=== PATIENT | male | born 1955 | race Caucasian/White ===

== ENCOUNTER 2017-05-23 02:49 | Inpatient (IN) | payer MEDICARE ==
[~2017-05-23] VITALS: Ht 165.1 cm; Wt 82.4 kg
[2017-05-23] VITALS (23 sets, daily range): BP systolic 98–158; BP diastolic 41–66; Ht 165.1 cm; Wt 82.4 kg
--- NOTE | ~2017-05-23 | HEMODYNAMI ---
PATIENT:HAYDEE ESCOBAR MEDICAL RECORD: [id number] : 53 LOCATION:[facility] D.2301 ADMISSION DATE: 05/23/17 Generatedon:06/17/201712:33 Patient name: HAYDEE ESCOBAR Patient #: [id number] SSN: : 1 11/02/1954 Date of study: 06/17/2017 Page: Of Hemodynamic Procedure Report Patient Data Patient Demographics Procedure consent was obtained First Name: HAYDEE Gender: Male Last Name: SHAWN : 1955 Patient #: [id number] Age: 61 year(s) Race: Unknown Additional ID: [id number] Contact details [address]: [address] [place] [address] State: [place] City: [place] Zip code: [address] Admission Admission Data Admission Date: 05/23/2017 Admission Time: 3:42 Room #: D.2301 Procedure Procedure Types Cath Procedure Peripheral Cath Diagnostic Procedure Cath Peripheral Venography IVC/SVC Inferior Venacava Filter Procedure Description Procedure Date Procedure Date: 06/17/2017 Procedure Start Time: 12:17 Procedure Staff Name Function Francisco Farias MD Performing Physician Low Garber RT Scrub Hilary Perdue RN Nurse Mariana Nicolas RT Butcher Apprentice Mariana Nicolas RT Monitor Procedure Data Cath Procedure Fluoroscopy Diagnostic fluoroscopy Total fluoroscopy Time: 1.3 time: 1.3 min min Diagnostic fluoroscopy Total fluoroscopy dose: 59 dose: 59 mGy mGy Contrast Material Contrast Material Type Amount (ml) Isovue 300 20 Procedure Medications Medication Administration Route Dosage Fentanyl I.V. 50 mcg Versed I.V. 2 mg Hemodynamics Rest Heart Rate: 92 (bpm) Snapshots Pre Cath Intra NCS Post Cath Vital Signs Time Heart Resp SPO2 NIBP Rhythm Pain Sedation Rate (ipm) (%) (mmHg) Status Level (bpm) 12:12:13 92 24 100 128/69(95) NSR 0 (11) 10(A) , No pain 12:16:31 92 19 100 128/69(83) NSR 0 (11) 10(A) , No pain 12:20:43 90 24 100 122/64(91) NSR 0 (11) 9(A) , No pain 12:24:52 84 22 100 107/60(89) NSR 0 (11) 9(A) , No pain 12:29:05 81 27 100 104/58(78) NSR 0 (11) 9(A) , No pain 12:33:04 No Cuff NSR 0 (11) 9(A) , No pain Medications Time Medication Route Dose Verified Delivered Reason Notes Effectivene ss by by 12:15:17 Versed I.V. 2 mg Hilary Hilary for Iron Iron sedation RN RN 12:15:34 Fentanyl I.V. 50 Hilary Hilary for mcg Iron Iron sedation RN site reliability engineer Log Time Note 11:44:56 Use device set IR Diagnostic 11:44:59 Sterile Angiographic Pack opened to sterile field. 11:45:00 Bag Decanter opened to sterile field. 11:45:01 Acist Manifold opened to sterile field. 11:45:02 Acist Hand Control opened to sterile field. 11:45:04 Acist Syringe opened to sterile field. 11:46:16 Cook BENTSON 145cm guide wire opened to sterile field. 11:46:18 Micropuncture VSI 4FR kit opened to sterile field. 12:01:48 Time tracking: Regular hours 12:03:17 Signed procedure consent form obtained from guardian. 12:03:26 H&P Date Dictated: 06/17/2017 Within 30 days and on chart.. 12:03:38 Family in waiting room. 12:03:43 Patient NPO since Midnight. 12:04:03 Is the patient allergic to Iodine/contrast media? No. 12:05:28 patient on vent, unable to answer pre sedation questions 12:10:50 TUBING, CONTRAST INJCTN HI PRES opened to sterile field. 12:11:00 ECG and BP/O2 sat monitors applied to patient. 12:11:01 Vital chart was started 12:11:02 Baseline sample Acquired. 12:11:03 Full Disclosure recording started 12:11:04 - 12:14:40 Physician arrived 12:15:01 Final Timeout: patient, procedure, and site verified with staff and physician. All members of the team are in agreement. 12:15:17 Versed 2 mg I.V. was administered by Hilary Perdue RN; for sedation; 12:15:34 Fentanyl 50 mcg I.V. was administered by Hilary Perdue RN; for sedation; 12:17:19 Physical assessment completed. ASA score P 3 - A patient with severe systemic disease as per Francisco Farias MD. 12:17:27 Sedation plan: IV Moderate Sedation Versed, Fentanyl 12:17:35 Procedure started. 12:17:50 Local anesthetic to right femoral vein with Lidocaine 1% by Francisco Farias MD.INITIAL ACCESS ONLY 12:17:52 Venous access obtained using ultrasound guidance. 12:20:14 Bard ANDREW Vena Cava Filter opened to sterile field. 12:21:10 Venogram performed 12:24:39 Andrew Femoral IVC filter was placed below renal veins. 12:26:01 Procedure ended.(Physican Out) 12:26:13 Fluoroscopy time 01.30 minutes. 12:26:19 Fluoroscopy dose: 59 mGy 12:26:19 Flurop Dose total: 59 12:26:25 Contrast amount:Isovue 300 20ml. 12:33:49 Vital chart was stopped Device Usage Item Name Manufacture Quantity Catalog Hospital Part Current Minima l Lot# / Number Charge Number Stock Stock Serial# Code Sterile Cardinal 1 [id number] 5 Angiographic Health Pack Bag Decanter Microtek 1 [id number] 85701 666749 5 Medical Inc. Acist Acist 1 43841 293285 238447 538021 5 Manifold Medical Systems Inc Acist Hand Acist 1 42741 543413 473595 445473 5 Control Medical Systems Inc Acist Syringe Acist 1 25779 752958 741127 395202 20 Medical Systems Inc Cook BENTSON Cook Medical 1 [id number] [id number] 5 [id number] 145cm guide wire Micropuncture VSI VASCULAR 1 [id number] 630405 273831 5 VSI 4FR kit SOLUTIONS TUBING, Merit 1 [id number] 276046 156216 480181 5 CONTRAST Medical INJCTN HI PRES Bard ANDREW Bard 1 [id number] 474239 870945 702518 5 [id number] Vena Cava Filter Signature Audit [place] Stage Time Signature Unsigned Intra-Procedure 06/17/2017 Mariana Nicolas 12:33:47 PM RT(R) Signatures Monitor : Mariana Nicolas RT Signature : Date : Time : [id number] [place] [address]
--- NOTE | 2017-05-23 03:35 | NUR ---
PT ARRIVED TO ICU VIA EMS FROM [place]. BP 158/59. TACHYPNEA WITH DIFFICULTY TAKING A DEEP BREATH; C/O PAIN WITH DEEP BREATH AND COUGHING. FEBRILE 99.9. 99% ON 8L OXYMIZER. PT COMPLAIN OF STIFFNESS IN RIGHT HAND AND ARM. SCAB SORE NOTED TO RIGHT UPPER ARM. PT STATES IT HAPPENED DURING FALL. URINAL AT BEDSIDE. AAO. PERRLA; 2MM BRISK. PT AND FAMILY STATES STARTED FALLING 3 WEEKS AGO, HAVING WEAKNESS, DIFFICULTY BREATHING, AND COUGHING. WENT TO THE PCP RECIEVED ABX, MRI, AND CHEST XRAY. STATED WAS ON ABX FOR 2 WEEKS. WEAKNESS CONTINUED UNTIL COUGHED AND PASSED OUT ON THE WAY TO THE BATHROOM. WENT TO ER IN [place]. PIV TO RIGHT HAND. PT ABLE TO MAKE CHANGES IN POSITION INDEPENDENTLY. ABLE TO COMMUNICATE VERBALLY; UNDERSTOOD; GETS SOB WITH LONG SENTENCES. ABLE TO STAND AT BEDSIDE TO USE URINAL; STEADY. PT STATES HX OF BEING A PREVIOUS SMOKER, CHF, AND HTN. PITTING EDEMA NOTED TO LOWER EXTREMITIES; +2 PITTING EDEMA BILATERALLY IN FEET. ALLERGY BAND, YELLOW BAND, AND ID BAND IN PLACE. LOCOMOTIVE ENGINEER ELECTRIC <3 SECS.
--- NOTE | 2017-05-23 05:26 | NUR ---
PT RESTING; EYES CLOSED. HYPOTENSION NOTED; MAP >65. WILL MONITOR CLOSELY.
[2017-05-23 05:33] LABS: BASOPHILS 0.2 % (0-2); EOSINOPHILS 0.4 % (0-7); HEMATOCRIT 33.5 % (42.0-54.0); HEMOGLOBIN 10.7 g/dL (13.5-17.5); IMMATURE GRANULOCYTES 1.2 % (0-5); LYMPHOCYTES 11.7 % (15-50); MCH 28.7 pg (26.0-34.0); MCHC 31.9 g/dL (31.0-37.0); MCV 89.8 fL (80.0-100.0); MEAN PLATELET VOLUME 10.5 fL (7.4-10.4); MONOCYTES 11.2 % (2-11); NEUTROPHILS 75.3 % (40-80); PLATELET COUNT 302 10x3/uL (130-400); RBC 3.73 10x6/uL (4.20-6.10); RDW 15.5 % (11.5-14.5); WBC 17.7 10x3/uL (4.8-10.8)
--- NOTE | 2017-05-23 05:54 | NUR ---
PT ATTEMPTED TO URINATE AT BEDSIDE IN URINAL. HAD DIFFICULTY VOIDING.
--- NOTE | 2017-05-23 06:09 | NUR ---
FAMILY AT BEDSIDE.
--- NOTE | 2017-05-23 06:23 | NUR ---
ALONDRA HERNANDEZ FOR CONSULT ORDERED BY GILMER.
--- NOTE | 2017-05-23 06:38 | NUR ---
SPOKE WITH DR. HERNANDEZ ORDERS RECEIVED. SEE ORDERS FOR DETAILS.
--- NOTE | 2017-05-23 07:00 | NUR ---
PT AWAKE AND ALERT, ORIENTED X4. ABLE TO OBEY COMMANDS AND VERBALIZE NEEDS. NORMAL SINUS ON MONITOR, S1S2 NOTED. PT HAVING DISCOMFORT WITH DEEP BREATHING, ENCOURAGED TO TURN COUGH AND DEEP BREATHE TOLERATED. PT ABLE TO TURN SELF IN BED WITHOUT ASSISTANCE. SHIFT ASSESSMENT DOCUMENTED PER FLOWSHEET. VITAL SIGNS STABLE.
[2017-05-23 07:14] LABS: ANION GAP 12.5 mmol/L (8-16); CALCIUM 8.3 mg/dL (8.5-10.1); CARBON DIOXIDE 28.8 mmol/L (21.0-32.0); CREATININE - SERUM 1.3 mg/dL (0.6-1.3); POTASSIUM - SERUM 4.3 mmol/L (3.5-5.1)
--- NOTE | 2017-05-23 09:00 | NUR ---
PT SITTING UP EATING BREAKFAST INDEPENDENTLY. O2 SAT STABLE ON 8L OXYMIZER, BREATHING SHALLOW BUT UNLABORED.
--- NOTE | 2017-05-23 11:00 | NUR ---
PT SITTING UP IN BED AT THIS TIME WITH WEAK COUGH NOTED. BREATHING SHALLOW BUT UNLABORED. WILL CONTINUE TO MONITOR.
--- NOTE | 2017-05-23 13:00 | NUR ---
NO ACUTE CHANGES IN PT STATUS AT THIS TIME. FAMILY AT BEDSIDE AND UPDATE GIVEN. WILL CONTINUE TO MONITOR
--- NOTE | 2017-05-23 15:00 | NUR ---
FAMILY CALLED AND UPDATE GIVEN. PT STATUS REMAINS UNCHANGED FROM PREVIOUS ASSESSMENT. CONTINUING TO WEAN O2 TOLERATED.
--- NOTE | 2017-05-23 17:00 | NUR ---
PT SITTING UP EATING DINNER INDEPENDENTLY. PLACED ON 3L NC AND O2 SAT STABLE AT THIS TIME. PT DENIES SHORTNESS OF BREATH. WILL CONTINUE TO MONITOR CLOSELY FOR SIGNS OF DISTRESS OR CHANGE IN STATUS. CALL LIGHT WITHIN REACH AND VITAL SIGNS STABLE
[2017-05-23] MEDS ORDERED: VIBRAMYCIN 100100 MG (18:17)
[2017-05-23] MEDS ORDERED: ISOSORBIDE MONO30 M1 PO (18:22)
[2017-05-23] MEDS ORDERED: ZANAFLEX4 MG PO (18:23)
[2017-05-23] MEDS ORDERED: METOPROLOL TART25 MG PO (18:24)
[2017-05-23] MEDS ORDERED: FLOMAX0.4 MG PO (18:25)
[2017-05-23] MEDS ORDERED: RANEXA1000 MG PO (18:26)
[2017-05-23] MEDS ORDERED: NEURONTIN800 MG PO (18:27)
[2017-05-23] MEDS ORDERED: AMBIEN10 MG PO (18:27)
[2017-05-23] MEDS ORDERED: NITRO-DUR0.6 MG TRANSDERM (18:29)
[2017-05-23] MEDS ORDERED: PLAVIX75 MG PO (18:29)
--- NOTE | 2017-05-23 19:15 | NUR ---
REC'D TO CARE, LINUX SYSTEM ENGINEER PER FLOWSHEET. PT ALERT AND ORIENTED. VSS. PT DENIES SOB OR CHEST PAIN..ALARMS ON. URINAL AT BS. C/L IN REACH.
--- NOTE | 2017-05-23 21:27 | NUR ---
FAMILY AT BS, UPDATE GIVEN AND QUESTIONS ANSWERED. ADMIN PO MED PER MD ORDERS. VSS . C/L IN REACH.
--- NOTE | 2017-05-23 23:12 | NUR ---
REASSESSMENT PER FLOWSHEET, NO ACUTE CHANGES. PT WATCHING TV, DENIES PAIN OR NEEDS. C/L IN USE.
[2017-05-24] VITALS (26 sets, daily range): BP systolic 101–140; BP diastolic 44–89
--- NOTE | 2017-05-24 01:00 | NUR ---
RESTING WITH EYES CLOSED, VSS. ALARMS ON AND C/L IN REACH.
--- NOTE | 2017-05-24 03:31 | NUR ---
REASSESSMENT PER FLOWSHEET, NO ACUTE CHANGES. VSS. PT DENIES NEEDS. C/L IN USE.
[2017-05-24 04:32] LABS: BASOPHILS 0.1 % (0-2); EOSINOPHILS 0 % (0-7); HEMOGLOBIN 11.4 g/dL (13.5-17.5); IMMATURE GRANULOCYTES 1.1 % (0-5); LYMPHOCYTES 8.7 % (15-50); MCH 28.4 pg (26.0-34.0); MCHC 31.7 g/dL (31.0-37.0); MCV 89.8 fL (80.0-100.0); MEAN PLATELET VOLUME 10.9 fL (7.4-10.4); MONOCYTES 4.8 % (2-11); NEUTROPHILS 85.3 % (40-80); PLATELET COUNT 309 10x3/uL (130-400); RBC 4.01 10x6/uL (4.20-6.10); RDW 15.2 % (11.5-14.5); WBC 13.3 10x3/uL (4.8-10.8)
[2017-05-24 04:50] LABS: ALBUMIN 2.2 g/dL (3.4-5.0); ANION GAP 14.2 mmol/L (8-16); BILIRUBIN - TOTAL 0.35 mg/dL (0.2-1.3); CALCIUM 8.8 mg/dL (8.5-10.1); CARBON DIOXIDE 26.6 mmol/L (21.0-32.0); CREATININE - SERUM 1.3 mg/dL (0.6-1.3); MAGNESIUM - SERUM 1.9 mg/dL (1.8-2.4); POTASSIUM - SERUM 3.8 mmol/L (3.5-5.1); PROTEIN - SERUM 6.9 g/dL (6.4-8.2)
--- NOTE | 2017-05-24 06:32 | NUR ---
AT , UPDATE GIVEN AND QUESTIONS ANSWERED.
--- NOTE | 2017-05-24 07:00 | NUR ---
REC'D REPORT AND RESUMED CARE, AWAKE AND CONFUSED, O2 VIA NC AT 3L, SAT 98%, OTHER VSS, ASSESSMENT COMPLETE PER FLOWSHEET, C/O PAIN IN BACK, 05/08, NO OTHER NEEDS AT THIS TIME
--- NOTE | 2017-05-24 08:00 | NUR ---
SISTER JAYLA CALLED FOR UPDATE, PASSWORD OBTAINED, STATUS UPDATED, NO OTHER NEEDS AT THIS TIME
--- NOTE | 2017-05-24 09:30 | NUR ---
AM MEDS GIVEN PER MAR ORDER
--- NOTE | 2017-05-24 11:00 | NUR ---
RESTING NO SIGNS OF DISTRESS, VSS, DENIES PAIN, NO ACUTE CHANGE FROM PREVIOUS ASSESSMENT, DR ROBERTSON AT BEDSIDE FOR EVAL, VOICES NO NEEDS AT THIS TIME
--- NOTE | 2017-05-24 12:00 | NUR ---
DR HERNANDEZ HERE FOR EVAL, NO NEW ORDERS AT THIS TIME, NO VISITORS AT THIS TIME
--- NOTE | 2017-05-24 12:15 | NUR ---
DR ROBERTSON HERE FOR EVAL, NO NEW ORDERS AT THIS TIME
--- NOTE | 2017-05-24 12:45 | NUR ---
AND SON AT BEDSIDE, STATUS UPDATED, VOICES NO NEEDS AT THIS TIME
--- NOTE | 2017-05-24 16:45 | NUR ---
DINNER TRAY TO BEDSIDE, INDEPENDENT WITH SET UP AND EATING
--- NOTE | 2017-05-24 18:00 | NUR ---
FAMILY AT BEDSIDE, STATUS UPDATED, VOICES NO NEEDS AT THIS TIME
--- NOTE | 2017-05-24 18:22 | NUR ---
NAUSEATED FROM DINNER, ZOFRAN 4 MG IVP GIVEN PER NEW ORDER
--- NOTE | 2017-05-24 18:38 | NUR ---
OOB TO BEDSIDE COMMODE WITHOUT ASSIST, TRANSFERRED WITHOUT DIFFICULTY
--- NOTE | 2017-05-24 19:30 | NUR ---
REPORT RECIEVED, SHIFT ASSESSMENT COMPLETE, PT IS ALERT AND ORIENTED, ON 3L NC WITH 98% O2 SAT. CRACKLES HEARD IN B/L UPPER LOBES, DIMINISHED IN B/L LOWER LBOES, S1S2, CM-NSR, PATENT RIGHT HAND PIV WITH NS INFUSING VIA PUMP, ABDOMEN IS SOFT AND ROUND WITH ACTIVE BS, URINAL AT BEDSIDE, ALL PPP, VSS, CALL LIGHT IN REACH
--- NOTE | 2017-05-24 21:15 | NUR ---
FAMILY AT BEDSIDE, UPDATE GIVEN
--- NOTE | 2017-05-24 23:00 | NUR ---
PT SAT DOWN IN BED AND FELL BACK INTO BED, STATES "I GOT REAL DIZZY AND FELL BACKWARDS". FAMILY CALLED EXPRESSING CONCERN DUE TO PT TELLING THEM HE FELL IN FLOOR AND HIT HIS HEAD, EXPLAINED TO FAMILY THAT PT DID NOT FALL IN FLOOR NOR DID HE HIT HIS HEAD, SON THEN EXPLAINED THAT PT HAS BEEN PASSING OUT AND FALLING OVER THE PAST MONTH, I LET THE SON KNOW THAT I WOULD PASS IT ON TO THE PHYSICIAN IN THE MORNING.
[2017-05-25] VITALS (11 sets, daily range): BP systolic 78–135; BP diastolic 40–72
--- NOTE | 2017-05-25 01:15 | NUR ---
PT RESTING AT THIS TIME, NO NEEDS NOTED, VSS, CALL LIGHT IN REACH
--- NOTE | 2017-05-25 03:00 | NUR ---
PT STILL CONFUSED TO TIME AND SITUATION, REORIENTS EASILY,
[2017-05-25 04:02] LABS: HEMATOCRIT 32.7 % (42.0-54.0); HEMOGLOBIN 10.4 g/dL (13.5-17.5); MCH 28.7 pg (26.0-34.0); MCHC 31.8 g/dL (31.0-37.0); MCV 90.3 fL (80.0-100.0); MEAN PLATELET VOLUME 10.8 fL (7.4-10.4); PLATELET COUNT 316 10x3/uL (130-400); RBC 3.62 10x6/uL (4.20-6.10); RDW 15.6 % (11.5-14.5); WBC 30.1 10x3/uL (4.8-10.8)
[2017-05-25 04:16] LABS: ANION GAP 12.6 mmol/L (8-16); BILIRUBIN - TOTAL 0.38 mg/dL (0.2-1.3); CALCIUM 8.6 mg/dL (8.5-10.1); CARBON DIOXIDE 28.6 mmol/L (21.0-32.0); CREATININE - SERUM 1.3 mg/dL (0.6-1.3); MAGNESIUM - SERUM 1.8 mg/dL (1.8-2.4); POTASSIUM - SERUM 4.2 mmol/L (3.5-5.1)
[2017-05-25 04:35] LABS: LYMPHOCYTES 3 % (15-50); MONOCYTES 3 % (2-11); NEUTROPHILS 94 % (40-80); PLATELET ESTIMATE NORMAL
--- NOTE | 2017-05-25 05:15 | NUR ---
PT RESTING COMFORTABLY AT THIS TIME, WILL CON'T TO MONITOR
--- NOTE | 2017-05-25 06:20 | NUR ---
FAMILY AT BEDSIDE, UPDATE GIVEN
--- NOTE | 2017-05-25 07:00 | NUR ---
REC'D REPORT AMD RESUMED CARE, AWAKE, ALERT, AND CONFUSED RE: SITUATION, DENIES PAIN, WEAK NON PRODUCTIVE COUGH NOTED, C/O OF PAIN WHEN TAKING A DEEP BREATH, ASSESSMENT COMPLETE PER FLOWSHEET, VSS, CALL LIGHT IN REACH, DISCUSSED USING CALL LIGHT WHEN NEEDING HELP GETTING UP, VERBALIZED UNDERSTANDING, VOICES NOOTHER NEEDS AT THIS TIME
--- NOTE | 2017-05-25 07:45 | NUR ---
BREAKFAST TRAY TO BEDSIDE, INDEPENDENT WITH SET UP AND EATING
--- NOTE | 2017-05-25 08:45 | NUR ---
AM MEDS GIVEN WITHOUT DIFFICULTY, INDEPENDENT WITH BED BATH, LINEN CHANGED BY NURSE, TOLERATED WITHOUT DYSPNEA
--- NOTE | 2017-05-25 09:54 | NUR ---
CALL LIGHT ON, UP AT BEDSIDE WITH STAND BY ASSIST TO USE URINAL, 350 CC URINE TO CONTAINER, BTB WITH ASSIST, CALL LIGHT IN REACH, NO OTHER NEEDS AT THIS TIME
--- NOTE | 2017-05-25 10:23 | NUR ---
Nutrition follow-up: Diet: low sodium PO intake 50-75% of meals Labs reviewed Wt: 148# RDN following.
--- NOTE | 2017-05-25 11:29 | NUR ---
* Is the patient Alert and Oriented? Yes 0 * How many steps to enter\exit or inside your home? 0 0 * PCP Dr. Olivo in [place] 0 * Pharm[facility] in [place] 0 * Preadmission Environment Home with Family 0 * ADLs Independent 0 * Equipment Nebulizer 0 * List name and contact numbers for known caregivers / representatives who currently or will assist patient after discharge: Spouse - Bindu [phone] or [phone] 0 * Additional services required to return to the preadmission environment? No 0 * Can the patient safely return to the preadmission environment? Yes 0 * Has this patient been hospitalized within the prior 30 days at any hospital? No Patient Name: HAYDEE ESCOBAR Admission Status: Elective Accout number: [id number] Admission Date: 05-23-2017 : 1955 Admission Diagnosis:SHORTNESS OF BREATH Attending: LONNIE Current LOS: 2 Planned Disposition: Home Primary Insurance: MEDICARE A & B Discharge Planning Comments: CM met with patient to assess dc plans/needs. Patient states he lives at home with his , Bindu. He reports he is independent with all ADL's & IADL's. He has a home nebulizer but no other DME. He has not had home health services in the past and does not think he will need them at discharge. CM will follow & assist as needed. Job Specification Writer: Letha Burton
--- NOTE | 2017-05-25 14:45 | NUR ---
TRANSFERED TO 2116 VIA WHEELCHAIR, AWAKE AND ALERT, DENIES PAIN, FAMILY AT BEDSIDE, STATUS UPDATED, PRIMARY NURSE JACOB VALADEZ RN CALLED TO BEDSIDE
--- NOTE | 2017-05-25 14:55 | NUR ---
TRANSFER FROM ICU BY W/C. OREINTED TO ROOM. CALL LIGHT IN REACH. WILL CONT. PLAN OF CARE.
--- NOTE | 2017-05-25 19:43 | NUR ---
RESUMED CARE OF PT, LYING IN BED RESPIRATIONS EVEN AND UNLABORED ON 3LPM VIA NC. FAMILY AT BEDSIDE. 62 SR ON TELEMETRY. NO NEEDS VOICED AT THIS TIME, CALL LIGHT IN REACH. WILL CONTINUE TO MONITOR. SEE NURSE ASSESSMENT.
[2017-05-26] VITALS: BP 106/43
--- NOTE | 2017-05-26 01:16 | NUR ---
LYING IN BED WITH EYES CLOSED, AT BEDSIDE. CALL LIGHT IN REACH. WILL CONTINUE TO MONITOR.
[2017-05-26 04:00] VITALS: BP 105/42
[2017-05-26 06:11] LABS: BASOPHILS 0 % (0-2); EOSINOPHILS 0 % (0-7); HEMATOCRIT 33.1 % (42.0-54.0); HEMOGLOBIN 10.5 g/dL (13.5-17.5); IMMATURE GRANULOCYTES 0.6 % (0-5); LYMPHOCYTES 4.6 % (15-50); MCH 28.5 pg (26.0-34.0); MCHC 31.7 g/dL (31.0-37.0); MCV 89.7 fL (80.0-100.0); MEAN PLATELET VOLUME 10.7 fL (7.4-10.4); MONOCYTES 4.7 % (2-11); NEUTROPHILS 90.1 % (40-80); PLATELET COUNT 308 10x3/uL (130-400); RBC 3.69 10x6/uL (4.20-6.10); RDW 15.8 % (11.5-14.5)
[2017-05-26 06:16] LABS: ALBUMIN 2.1 g/dL (3.4-5.0); ANION GAP 13.3 mmol/L (8-16); BILIRUBIN - TOTAL 0.33 mg/dL (0.2-1.3); CALCIUM 8.8 mg/dL (8.5-10.1); CARBON DIOXIDE 27.9 mmol/L (21.0-32.0); CREATININE - SERUM 1.4 mg/dL (0.6-1.3); MAGNESIUM - SERUM 2.1 mg/dL (1.8-2.4); POTASSIUM - SERUM 4.2 mmol/L (3.5-5.1)
--- NOTE | 2017-05-26 06:36 | NUR ---
NO CHANGES FROM PREVIOUS ASSESSMENT, CALL LIGHT IN REACH.
[2017-05-26 07:54] VITALS: BP 90/46
--- NOTE | 2017-05-26 10:13 | NUR ---
UP TO SHOWER ON 02 5L NC. BECAME SOB AND SHAKEY. ASSISTED BACK TO BED. 02 SAT 71%. B/P 125/73. RESP PAGED. 15L OXIMIZER APPLIED. 02 SATS INCREASED TO 95%. WILL CONT. TO MONITOR.
[2017-05-26 11:37] VITALS: BP 112/45
[2017-05-26 15:23] VITALS: BP 129/51
[2017-05-26 20:00] VITALS: BP 108/60
[2017-05-27 04:00] VITALS: BP 134/60
[2017-05-27 05:48] LABS: BASOPHILS 0.1 % (0-2); EOSINOPHILS 0.4 % (0-7); HEMATOCRIT 35.6 % (42.0-54.0); HEMOGLOBIN 11.1 g/dL (13.5-17.5); LYMPHOCYTES 9.8 % (15-50); MCH 28.5 pg (26.0-34.0); MCHC 31.2 g/dL (31.0-37.0); MCV 91.5 fL (80.0-100.0); MEAN PLATELET VOLUME 10.5 fL (7.4-10.4); MONOCYTES 4.8 % (2-11); NEUTROPHILS 83.9 % (40-80); PLATELET COUNT 250 10x3/uL (130-400); RBC 3.89 10x6/uL (4.20-6.10); RDW 15.9 % (11.5-14.5); WBC 20.5 10x3/uL (4.8-10.8)
[2017-05-27 06:08] LABS: ANION GAP 9.2 mmol/L (8-16); BILIRUBIN - TOTAL 0.32 mg/dL (0.2-1.3); CALCIUM 8.5 mg/dL (8.5-10.1); CARBON DIOXIDE 29.5 mmol/L (21.0-32.0); CREATININE - SERUM 1.3 mg/dL (0.6-1.3); MAGNESIUM - SERUM 2.1 mg/dL (1.8-2.4); POTASSIUM - SERUM 3.7 mmol/L (3.5-5.1); PROTEIN - SERUM 5.6 g/dL (6.4-8.2)
--- NOTE | 2017-05-27 07:23 | NUR ---
ARRIVED AT ROOM 2116 AFTER RR CALLED. PT. WAS UP GOING TO BATHROOM AND FELL AND HIT HEAD. A&O X3. PRECAUTIONARY CT OF HEAD ORDERED. DESATTING IN 70'S. WAS NOT WEARING HIS OXYGEN. OXYGEN PLACED BACK ON. SAT INCREASED TO 91%. BP 104/46. HR 70. RR 22 REG AND EVEN. NO SIGNS OF DISTRESS.
--- NOTE | 2017-05-27 07:31 | NUR ---
DENIES HITTING ANYTHING BUT HIS HEAD DURING FALL.
--- NOTE | 2017-05-27 07:36 | NUR ---
DR. AVALOS PAGED TO UPDATE.
--- NOTE | 2017-05-27 07:45 | NUR ---
DR. AVALOS RETURNED PAGE. UPDATED HIM ABOUT FALL AND ABOUT ORDERED CT. HE WANTS NOTIFIED "AFTER CT IS DONE". UPDATED VICTOR HUGO ABOUT HIS REQUEST.
--- NOTE | 2017-05-27 08:15 | NUR ---
RECEIVED CT RESULTS, NOTIFIED DR WESTBROOK PER HIS REQUEST. PT NOW BACK TO BASELINE, ALERT O X3. AT BEDSIDE NO NEEDS OR C/O AT THIS TIME. WILL CONT TO MONITOR.
[2017-05-27] MEDS ORDERED: BAYER CHEWABLE81 MG PO (09:11)
--- NOTE | 2017-05-27 09:20 | NUR ---
AM MEDS GIVEN WITHOUT DIFFICULTY. CONT TO MONITOR.
--- NOTE | 2017-05-27 11:39 | NUR ---
RESTING WELL WATCHING TV. NO NEEDS VOICED.
--- NOTE | 2017-05-27 13:01 | NUR ---
PT RESTING WELL WITH EYES CLOSED, NO DISTRESS NOTED. ALSO SLEEPING IN CHAIR AT BEDSIDE.
[2017-05-27 14:39] VITALS: BP 93/40
--- NOTE | 2017-05-27 17:23 | NUR ---
SITTING UP IN BED EATING DINNER. NO NEEDS OR C/O AT THIS TIME.
[2017-05-27 20:00] VITALS: BP 117/60
--- NOTE | 2017-05-27 20:00 | NUR ---
PT RESTING IN BED WITH NO DISTRESS. ALERT/ORIENTED. NEURO CHECKS COMPLETED. IVF NS @ KVO INFUSING TO RIGHT HAND. AT BEDSIDE. SEE SHIFT ASSESSMENT. MONITOR AND CPOC.
--- NOTE | 2017-05-27 21:59 | NUR ---
HS MEDS GIVEN. PT WEARING OXIMISER @ 15L. HAS BEEN UP TO BSC FOR VERY SMALL BM. IV ABT NOW INFUSING. AT BEDSIDE.
--- NOTE | 2017-05-27 23:20 | NUR ---
REQUESTED AMBIEN ADMINISTERED. PT ALERT/ORIENTED. NEURO CHECKS STABLE.
[2017-05-28] VITALS: BP 106/31
--- NOTE | 2017-05-28 01:55 | NUR ---
PT RESTING WITH NO DISTRESS. AT BEDSIDE. CPOC.
[2017-05-28 04:00] VITALS: BP 126/57
--- NOTE | 2017-05-28 05:34 | NUR ---
PT AWAKE AND RESTING. IV ABT UP AND INFUSING. PORTABLE CHEST XRAY NOW BEING DONE IN ROOM. PT IN GOOD SPIRITS THIS MORNING AND SEEMS TO BE FEELING BETTER. IS AT BEDSIDE.
[2017-05-28 06:08] LABS: BASOPHILS 0 % (0-2); EOSINOPHILS 0 % (0-7); HEMATOCRIT 34.7 % (42.0-54.0); HEMOGLOBIN 11.1 g/dL (13.5-17.5); IMMATURE GRANULOCYTES 0.9 % (0-5); LYMPHOCYTES 5.5 % (15-50); MCH 28.7 pg (26.0-34.0); MCV 89.7 fL (80.0-100.0); MEAN PLATELET VOLUME 10.7 fL (7.4-10.4); MONOCYTES 2.8 % (2-11); NEUTROPHILS 90.8 % (40-80); PLATELET COUNT 239 10x3/uL (130-400); RBC 3.87 10x6/uL (4.20-6.10); RDW 15.7 % (11.5-14.5); WBC 18.3 10x3/uL (4.8-10.8)
[2017-05-28 06:53] LABS: ALBUMIN 2.1 g/dL (3.4-5.0); ANION GAP 8.4 mmol/L (8-16); BILIRUBIN - TOTAL 0.32 mg/dL (0.2-1.3); CALCIUM 8.8 mg/dL (8.5-10.1); CREATININE - SERUM 1.1 mg/dL (0.6-1.3); MAGNESIUM - SERUM 2.2 mg/dL (1.8-2.4); POTASSIUM - SERUM 4.4 mmol/L (3.5-5.1); PROTEIN - SERUM 5.7 g/dL (6.4-8.2)
--- NOTE | 2017-05-28 07:00 | NUR ---
INITIAL ROUNDS MADE. PT SITTING UP IN BED WATCHING TV. FAMILY IN ROOM. NO NEEDS OR C/O VOICED AT THIS TIME. WILL CONT TO MONITOR.
[2017-05-28 08:00] VITALS: BP 114/39
[2017-05-28 12:00] VITALS: BP 117/46
--- NOTE | 2017-05-28 13:57 | NUR ---
SITTING UP IN BED WATCHING TV. NO NEEDS OR C/O VOICED AT THIS TIME.
--- NOTE | 2017-05-28 15:22 | NUR ---
NEW IV SITED TO LEFT WRIST 20G X1 STICK DUE TO LARGER GAUGE IV NEEDED FOR CAT PE PROTOCOL.
[2017-05-28 16:00] VITALS: BP 112/53
--- NOTE | 2017-05-28 18:25 | NUR ---
TAKEN TO RADIOLOGY FOR CTA WITH PE PROTOCOL.
[2017-05-28 20:00] VITALS: BP 126/60
--- NOTE | 2017-05-28 20:00 | NUR ---
RESTING IN BED WITH AT BEDSIDE. ALERT/ORIENTED. O2 @ 15L/OXIMISER. NS @ KVO TO NEW IV IN LEFT WRIST. IV IN RIGHT HAND SALINE LOCKED. SR PER TELEMETRY. SEE ASSESSMENT. MONITOR AND CPOC.
--- NOTE | 2017-05-28 22:20 | NUR ---
IV ABT UP AND INFUSING TO MEW IV IN LFA. REMOVED OLD PIV IN RIGHT HAND. HS PILLS GIVEN. AT BEDSIDE.
--- NOTE | 2017-05-28 22:32 | NUR ---
C/O NAUSEA. MEDICATED WITH ZOFRAN 4MG SIVP. WILL MONITOR.
--- NOTE | 2017-05-29 04:49 | NUR ---
IV ABT UP AND INFUSING. IV LASIX ADMINISTERED. PT RESTING. O2 PER OXIMISER NOW @ 14L PER RESPIRATORY. CPOC.
--- NOTE | 2017-05-29 05:49 | NUR ---
IV LEVAQUIN NOW UP AND INFUSING. PT WATCHING TV. RESPS NONLABORED. O2 12L/OXIMISER. CPOC.
[2017-05-29 06:11] LABS: BASOPHILS 0 % (0-2); EOSINOPHILS 0 % (0-7); HEMOGLOBIN 11.5 g/dL (13.5-17.5); IMMATURE GRANULOCYTES 0.9 % (0-5); LYMPHOCYTES 4.8 % (15-50); MCH 28.5 pg (26.0-34.0); MCHC 31.1 g/dL (31.0-37.0); MCV 91.6 fL (80.0-100.0); MEAN PLATELET VOLUME 10.7 fL (7.4-10.4); MONOCYTES 2.5 % (2-11); NEUTROPHILS 91.8 % (40-80); PLATELET COUNT 279 10x3/uL (130-400); RBC 4.04 10x6/uL (4.20-6.10); RDW 15.9 % (11.5-14.5); WBC 23.3 10x3/uL (4.8-10.8)
[2017-05-29 06:23] LABS: ANION GAP 7.6 mmol/L (8-16); CARBON DIOXIDE 36.7 mmol/L (21.0-32.0); CREATININE - SERUM 1.3 mg/dL (0.6-1.3)
[2017-05-29 06:30] LABS: POTASSIUM - SERUM 5.3 mmol/L (3.5-5.1)
[2017-05-29 08:00] VITALS: BP 104/49
--- NOTE | 2017-05-29 09:16 | NUR ---
TELEMETRY SR. RESP UL ON 02 15L. UP AMBULATING WITH PT ASSIST.
[2017-05-29 12:46] VITALS: BP 154/75
--- NOTE | 2017-05-29 14:14 | NUR ---
DECREASED O2 TO 13 LITERS SPO2 99% AT THIS TIME
--- NOTE | 2017-05-29 15:42 | NUR ---
DECREASED O2 TO 12 LITERS PT SPO2 CURRENTLY 95% AND HOLDING
[2017-05-29 16:00] VITALS: BP 145/69
[2017-05-29 20:00] VITALS: BP 88/50
--- NOTE | 2017-05-29 20:06 | NUR ---
PT RESTING IN BED WITH O2 AT 10L PER OXIMISER. DIMINISHED BREATH SOUNDS. REPORTS FREQUENT EPISODES OF COUGHING THAT IS DRY/NONPRODUCTIVE. LEFT WRIST PIV WITH NS @ KVO. SR PER TELEMETRY. AT BEDSIDE. SEE ASSESSMENT. CPOC.
--- NOTE | 2017-05-29 22:06 | NUR ---
BEDTIME MEDS ADMINISTERED. IV ABT UP AND INFUSING. PT WATCHING TV. AT BEDSIDE. O2 @ 10L/OXIMISER. NO DISTRESS. CPOC.
--- NOTE | 2017-05-29 23:43 | NUR ---
RETAIL MARKETING MANAGER STANDING PATIENT TO WEIGH ON BEDSIDE SCALE WHEN HE SUDDENLY BECAME LIMP AND RETAIL MARKETING MANAGER CAUGHT HIM HE BEGAN TO SLIDE TO FLOOR. ADDITIONAL STAFF ARRIVED AND PT WAS TRANSFERRED TO BED. VS TAKEN. NOTED LOW BP AFTER GETTING PT BACK INTO BED. FALL PRECAUTIONS. AT BEDSIDE.
[2017-05-30] VITALS: BP 102/42
--- NOTE | 2017-05-30 03:28 | NUR ---
PT RESTING IN BED WITH NO DISTRESS. CPOC. O2 @ 12L/OXIMISER. AT BEDSIDE.
[2017-05-30 04:00] VITALS: BP 114/54
[2017-05-30 05:34] LABS: BASOPHILS 0 % (0-2); EOSINOPHILS 0.1 % (0-7); HEMATOCRIT 36.2 % (42.0-54.0); HEMOGLOBIN 11.3 g/dL (13.5-17.5); IMMATURE GRANULOCYTES 1.6 % (0-5); LYMPHOCYTES 4.3 % (15-50); MCH 28.2 pg (26.0-34.0); MCHC 31.2 g/dL (31.0-37.0); MCV 90.3 fL (80.0-100.0); MEAN PLATELET VOLUME 10.5 fL (7.4-10.4); MONOCYTES 3.1 % (2-11); NEUTROPHILS 90.9 % (40-80); PLATELET COUNT 252 10x3/uL (130-400); RBC 4.01 10x6/uL (4.20-6.10); RDW 15.7 % (11.5-14.5); WBC 23.5 10x3/uL (4.8-10.8)
[2017-05-30 05:42] LABS: ANION GAP 5.9 mmol/L (8-16); CALCIUM 9.5 mg/dL (8.5-10.1); CARBON DIOXIDE 37.9 mmol/L (21.0-32.0); CREATININE - SERUM 1.4 mg/dL (0.6-1.3); MAGNESIUM - SERUM 2.1 mg/dL (1.8-2.4); PHOSPHOROUS 4.1 mg/dL (2.5-4.9); POTASSIUM - SERUM 4.8 mmol/L (3.5-5.1)
--- NOTE | 2017-05-30 05:47 | NUR ---
PORTABLE CHEST XRAY DONE IN ROOM.
--- NOTE | 2017-05-30 05:47 | NUR ---
IV ABT UP AND INFUSING. NOTED CHANGES PER MD IN MED ORDERS.
--- NOTE | 2017-05-30 07:40 | NUR ---
ORTHOSTATIC B/P 123/62 LYING, 117/48 SITTING, AND 81/41 STANDING. RESULTS GIVEN TO DR. SCHERER. TELEMETRY SR. WILL CONT. PLAN OF CARE.
--- NOTE | 2017-05-30 10:43 | NUR ---
DECREASED O2 TO 10 LITERS SP02 100 % AT THIS TIME
[2017-05-30 11:00] VITALS: BP 123/62
[2017-05-30 12:43] VITALS: BP 98/50
--- NOTE | 2017-05-30 13:48 | NUR ---
Nutrition follow-up: Diet: Low sodium PO intake 90% average of last 9 meals labs reviewed +BM Wt: 146# RDN following.
--- NOTE | 2017-05-30 14:24 | NUR ---
DECREASED PT OXYGEN TO 7LITERS SPO2 CURRRENTLY 99% at 10L WILL MONITOR
[2017-05-30 16:50] VITALS: BP 152/70
[2017-05-30 19:56] VITALS: BP 101/41
--- NOTE | 2017-05-30 20:10 | NUR ---
RESTING IN BED WITH NO DISTRESS. ALERT/ORIENTED. O2 PER OXIMISER, CURRENTLY AT 12L. IVF 1/2NS @ 50ML/HR INFUSING TO LEFT WRIST. PRECAUTIONS WITH STANDING DUE TO NOTED BP DROP. SEE ASSESSMENT AND CPOC.
--- NOTE | 2017-05-30 21:40 | NUR ---
BEDTIME MEDS GIVEN. FSBS 308. EXPLAINED TO PATIENT THAT SINCE HE IS ON SOLUMEDROL HIS BLOOD SUGAR WILL BE HIGHER AND WE WILL TREAT IT WITH SLIDING SCALE INSULIN. FSBS 308, ADMINISTERED 8 UNITS OF SLIDING SCALE HUMULIN R. PT'S IS ASSISTING HIM WITH HIS ADLS AND BATHING. SHE HAS DECLINED ASSISTANCE PER STAFF DUE TO PT'S MODESTY. CPOC.
--- NOTE | 2017-05-31 02:42 | NUR ---
PT SAT ON SIDE OF BED TO URINATE AND HE THEN FELL OVER. YELLED FOR ASSIST AND STAFF ARRIVED TO ROOM AND WAS ABLE TO KEEP HIM SAFELY ON BED. HE WAS RETURNED TO A LYING POSITION IN BED AND ASSESSED. IMMEDIATE RESPONSES FROM PATIENT ARE SLOW AND UNFOCUSED. HE THEN BECAME MORE ALERT AND WAS ABLE TO IDENTIFY SELF/PLACE AND SITUATION. BP TAKEN 115/55 HR 71/SR PER TELEMETRY. IVF INFUSING. PT IS ON FALL PRECAUTIONS AND SAYS SHE DID NOT TRY TO GET HIM UP, THAT HE ONLY SAT ON SIDE OF BED. PT NOW BACK TO HIS NORMAL LOC AND IS READY TO REST AGAIN. WILL MONITOR AND CPOC.
[2017-05-31 04:00] VITALS: BP 123/51
[2017-05-31 06:09] LABS: BASOPHILS 0 % (0-2); EOSINOPHILS 0.1 % (0-7); HEMATOCRIT 37.4 % (42.0-54.0); HEMOGLOBIN 11.8 g/dL (13.5-17.5); IMMATURE GRANULOCYTES 1.7 % (0-5); LYMPHOCYTES 5.4 % (15-50); MCH 28.7 pg (26.0-34.0); MCHC 31.6 g/dL (31.0-37.0); MEAN PLATELET VOLUME 10.1 fL (7.4-10.4); MONOCYTES 5.3 % (2-11); NEUTROPHILS 87.5 % (40-80); PLATELET COUNT 248 10x3/uL (130-400); RBC 4.11 10x6/uL (4.20-6.10); RDW 15.8 % (11.5-14.5); WBC 22.4 10x3/uL (4.8-10.8)
[2017-05-31 06:22] LABS: ANION GAP 6.8 mmol/L (8-16); CALCIUM 9.2 mg/dL (8.5-10.1); CARBON DIOXIDE 35.7 mmol/L (21.0-32.0); CREATININE - SERUM 1.1 mg/dL (0.6-1.3); POTASSIUM - SERUM 4.5 mmol/L (3.5-5.1)
[2017-05-31 08:00] VITALS: BP 150/64
[2017-05-31 09:15] LABS: IMMUNOGLOBULIN E 684 IU/mL (0-100)
--- NOTE | 2017-05-31 10:26 | NUR ---
TELEMETRY SR. IV PATENT. FAMILY AT BS. WILL CONT. PLAN OF CARE.
[2017-05-31 11:18] LABS: ANA REFLEX - DIRECT Negative (Negative)
[2017-05-31 12:00] VITALS: BP 124/49
[2017-05-31 16:00] VITALS: BP 122/48
--- NOTE | 2017-05-31 17:35 | NUR ---
CONSENTS SIGNED FOR BRON[facility].
[2017-05-31 18:57] LABS: BASOPHILS 0.1 % (0-2); EOSINOPHILS 0.1 % (0-7); HEMATOCRIT 35.6 % (42.0-54.0); HEMOGLOBIN 11.4 g/dL (13.5-17.5); IMMATURE GRANULOCYTES 2.3 % (0-5); LYMPHOCYTES 4.6 % (15-50); MCH 29.2 pg (26.0-34.0); MEAN PLATELET VOLUME 10.1 fL (7.4-10.4); MONOCYTES 5.1 % (2-11); NEUTROPHILS 87.8 % (40-80); PLATELET COUNT 232 10x3/uL (130-400); RBC 3.91 10x6/uL (4.20-6.10); RDW 15.9 % (11.5-14.5); WBC 19.9 10x3/uL (4.8-10.8)
[2017-05-31 19:10] LABS: APTT 26.2 SECONDS (22.8-39.4); INR 0.97 (0.85-1.17); PROTIME 12.7 SECONDS (11.6-15.0)
[2017-05-31 21:52] VITALS: BP 150/45
[2017-06-01] VITALS (7 sets, daily range): BP systolic 99–167; BP diastolic 36–73
[2017-06-01 05:42] LABS: ANION GAP 8.2 mmol/L (8-16); CARBON DIOXIDE 34.8 mmol/L (21.0-32.0); CREATININE - SERUM 1.2 mg/dL (0.6-1.3)
[2017-06-01 05:48] LABS: HEMATOCRIT 35.4 % (42.0-54.0); HEMOGLOBIN 11.1 g/dL (13.5-17.5); MCH 28.5 pg (26.0-34.0); MCHC 31.4 g/dL (31.0-37.0); MEAN PLATELET VOLUME 10.8 fL (7.4-10.4); PLATELET COUNT 260 10x3/uL (130-400); RBC 3.89 10x6/uL (4.20-6.10); RDW 16.1 % (11.5-14.5); WBC 22.6 10x3/uL (4.8-10.8)
[2017-06-01 06:14] LABS: HYPOCHROMASIA OCC; LYMPHOCYTES 5 % (15-50); MONOCYTES 2 % (2-11); NEUTROPHILS 87 % (40-80); PLATELET ESTIMATE NORMAL
--- NOTE | 2017-06-01 07:30 | NUR ---
RECEIVED PT IN BED EYES CLOSED RESP UNLABORED NAD NOTED
--- NOTE | 2017-06-01 10:08 | NUR ---
Nutrition Follow Up: Pt is eating 92% meal avg on an AHA diet. Noted pt is NPO this am for Bronch procedure. +BM 05/28/17. Wt stable. Labs reviewed - Glucose elevated. Meds noted including Solu-Medrol, Humulin, Lantus. Rec resuming diet when medically feasible. Would rec ADA diet to aid in glucose control. RD following.
--- NOTE | 2017-06-01 10:45 | NUR ---
RECEIVED PT BACK TO ROOM VIA BED VSS AWAKE AND ALERT WILL CONT TO MONITOR
--- NOTE | 2017-06-01 12:21 | NUR ---
FSBS 200 REGULAR INSULIN 4 UNITS GIVEN SQ LT ARM
[2017-06-01] MEDS ORDERED: NORCO 7.5/325 T1 TA1 PO (12:53)
[2017-06-01 13:56] LABS: LYMPH - BF 11 %; MACROPHAGES BF 38 %; MESOTHELIALS BF 18 %; NEUT - BF 33 %
--- NOTE | 2017-06-01 16:54 | NUR ---
FSBS 365 REGULAR INSULIN 16 UNITS GIVEN SQ LT ARM
--- NOTE | 2017-06-01 19:00 | NUR ---
RECEIVED REPORT AND ASSUMED PT CARE FROM DAY SHIFT NURSE @ THIS TIME.
--- NOTE | 2017-06-01 20:30 | NUR ---
PT B/P 99/39 - WILL HOLD METOPROLOL AT THIS TIME.
--- NOTE | 2017-06-01 22:30 | NUR ---
PT RESTING WELL WITHOUT C/O OR DISTRESS NOTED. NO NEEDS VOICED. WILL CONT TO MONITOR.
[2017-06-02] VITALS (8 sets, daily range): BP systolic 93–189; BP diastolic 33–105
--- NOTE | 2017-06-02 00:13 | NUR ---
CONT TO REST WELL WITHOUT C/O NOTED. SPOUSE @ BEDSIDE.
[2017-06-02 05:51] LABS: BASOPHILS 0.1 % (0-2); HEMOGLOBIN 10.6 g/dL (13.5-17.5); IMMATURE GRANULOCYTES 1.8 % (0-5); LYMPHOCYTES 8.3 % (15-50); MCH 28.8 pg (26.0-34.0); MCHC 31.2 g/dL (31.0-37.0); MCV 92.4 fL (80.0-100.0); MEAN PLATELET VOLUME 10.2 fL (7.4-10.4); MONOCYTES 4.4 % (2-11); NEUTROPHILS 84.4 % (40-80); PLATELET COUNT 196 10x3/uL (130-400); RBC 3.68 10x6/uL (4.20-6.10); WBC 18.3 10x3/uL (4.8-10.8)
[2017-06-02 06:06] LABS: ANION GAP 5.8 mmol/L (8-16); CALCIUM 8.5 mg/dL (8.5-10.1); CARBON DIOXIDE 35.3 mmol/L (21.0-32.0); CREATININE - SERUM 1.1 mg/dL (0.6-1.3)
[2017-06-02 06:08] LABS: POTASSIUM - SERUM 4.1 mmol/L (3.5-5.1)
--- NOTE | 2017-06-02 07:30 | NUR ---
RECEIVED PT IN BED AAOX4 RESP UNLABORED STATES BREATHING EASIER TODAY DENIES ANY NEEDS AT THIS TIME
--- NOTE | 2017-06-02 11:43 | NUR ---
FSBS 278 REGULAR INSULIN 10 UNITS GIVEN SQ LT ARM
[2017-06-02 13:14] LABS: FUNGUS STAIN Final report (())
[2017-06-02 16:14] LABS: ACID FAST SMEAR Negative (()); AFB SPECIMEN PROCESSING Concentration (())
[2017-06-03] VITALS: BP 92/37
[2017-06-03 04:00] VITALS: BP 111/44
[2017-06-03 08:00] VITALS: BP 150/65
[2017-06-03 12:00] VITALS: BP 147/65
--- NOTE | 2017-06-03 14:40 | NUR ---
AMBULATING WITH PHYSICAL THERAPY IN HALLWAY WITH AT SIDE.
[2017-06-03 16:00] VITALS: BP 116/46
--- NOTE | 2017-06-03 17:16 | NUR ---
WITHOUT CHANGES OR DISTRESS NOTED AT THIS TIME. AT SIDE. DENIES NEEDS.
[2017-06-03 19:00] VITALS: BP 146/58
[2017-06-04] VITALS: BP 122/51
[2017-06-04 04:00] VITALS: BP 110/48
[2017-06-04 05:59] LABS: ALBUMIN 2.4 g/dL (3.4-5.0); ANION GAP 5.4 mmol/L (8-16); BILIRUBIN - TOTAL 0.46 mg/dL (0.2-1.3); CALCIUM 8.8 mg/dL (8.5-10.1); CREATININE - SERUM 1.1 mg/dL (0.6-1.3); PROTEIN - SERUM 5.7 g/dL (6.4-8.2)
[2017-06-04 06:27] LABS: APTT 24.3 SECONDS (22.8-39.4); INR 0.91 (0.85-1.17); PROTIME 12.1 SECONDS (11.6-15.0)
[2017-06-04 06:40] LABS: POTASSIUM - SERUM 5.4 mmol/L (3.5-5.1)
[2017-06-04 06:52] LABS: BASOPHILS 0.1 % (0-2); EOSINOPHILS 0 % (0-7); HEMATOCRIT 35.1 % (42.0-54.0); HEMOGLOBIN 11.1 g/dL (13.5-17.5); LYMPHOCYTES 4.9 % (15-50); MCH 28.7 pg (26.0-34.0); MCHC 31.6 g/dL (31.0-37.0); MCV 90.7 fL (80.0-100.0); MEAN PLATELET VOLUME 10.9 fL (7.4-10.4); MONOCYTES 4.6 % (2-11); NEUTROPHILS 86.4 % (40-80); PLATELET COUNT 238 10x3/uL (130-400); RBC 3.87 10x6/uL (4.20-6.10); RDW 16.5 % (11.5-14.5); WBC 27.9 10x3/uL (4.8-10.8)
--- NOTE | 2017-06-04 07:20 | NUR ---
ASSESSMENT DONE. AT SIDE. DENIES NEEDS.
[2017-06-04 08:22] VITALS: BP 140/56
--- NOTE | 2017-06-04 10:14 | NUR ---
CONSENTS OBTAINED FOR TOMORROW'S SURGERY, PLACED ON CHART.
[2017-06-04 10:36] LABS: APPEARANCE CLEAR (CLEAR); BILIRUBIN NEGATIVE (NEGATIVE); COLOR DK YELLOW (YELLOW); GLUCOSE NEGATIVE (NEGATIVE); KETONE NEGATIVE (NEGATIVE); LEUKOCYTE ESTERASE TRACE (NEGATIVE); NITRITE NEGATIVE (NEGATIVE); PH 5.5 (5.0-6.0); PROTEIN NEGATIVE (NEGATIVE); SPECIFIC GRAVITY 1.015 (1.005-1.020); UROBILINOGEN NORMAL (NORMAL)
[2017-06-04 10:42] LABS: AMORPHOUS SEDIMENT <1+ /lpf (NONE SEEN); BACTERIA FEW /hpf (NONE SEEN); EPITHELIAL CELLS OCC /hpf (0-5); HYALINE CAST OCC /lpf (NONE SEEN); RED CELLS - URINE RARE /hpf (0-5); WHITE CELLS - URINE 0-5 /hpf (0-5)
[2017-06-04 12:10] VITALS: BP 110/47
[2017-06-04 16:15] VITALS: BP 89/43
--- NOTE | 2017-06-04 17:29 | NUR ---
WITHOUT CHANGES OR DISTRESS NOTED AT THIS TIME. FAMILY AT SIDE. DR HERCULES HERE B/P DONEAND GIVEN TO
--- NOTE | 2017-06-04 19:45 | NUR ---
PT RESTING IN BED, AND DAUGHTER AT BEDSIDE. ALERT/ORIENTED. SR PER TELEMETRY. O2 @ 7L/OXIMISER. RIGHT WRIST WITH .45NS @ 50ML/HR PT WILL BE NPO AT MIDNIGHT FOR VAT PER DR MARIANO IN AM. SEE SHIFT ASSESSMENT. CPOC.
--- NOTE | 2017-06-04 21:00 | NUR ---
PHONE CALL FROM DR ORLANDO/ANESTHESIA, REVIEWED PREOP ORDERS. CLARIFIED TO PUT NITRO ON BOTH WRIST. REVIEWED BP'S TAKEN EARLIER AND REPORTED TO DR HERCULES AND THAT LOPRESSOR WILL BE HELD TONIGHT. CURRENT SBP NOW BETTER. WILL RECHECK AND DOCUMENT NEW BP'S.
[2017-06-04 22:14] VITALS: BP 102/39
--- NOTE | 2017-06-04 22:47 | NUR ---
ALL BEDTIME MEDS GIVEN EXCEPT LOPRESSOR DUE TO LOW BP 102/39. REVIEWED PLAN OF CARE WITH PATIENT. NPO AT MIDNIGHT. FSBS 293, NO SLIDING SCALE GIVEN SINCE PATENT WILL BE NPO AND HAVE SURGERY IN AM. AT BEDSIDE. ALL OTHER VISITORS HAVE LEFT SO PT CAN REST. CPOC.
[2017-06-05] VITALS (40 sets, daily range): BP systolic 95–170; BP diastolic 40–70
--- NOTE | 2017-06-05 02:55 | NUR ---
PT HAVING COUGHING SPELL, FEELING LIKE HE IS CHOKING AND THAT HIS THROAT IS "KILLING" HIM. CURLED UP ON SIDE ALMOST IN TEARS. REQUESTS PAIN MED. GAVE NORCO WITH SIP OF WATER. WILL MONITOR.
--- NOTE | 2017-06-05 03:50 | NUR ---
PT'S THROAT FEELING BETTER. COMPLETE PREOP BATH AND LINEN CHANGE COMPLETED.
[2017-06-05 04:45] LABS: BASOPHILS 0.2 % (0-2); EOSINOPHILS 0.1 % (0-7); HEMATOCRIT 33.6 % (42.0-54.0); HEMOGLOBIN 10.5 g/dL (13.5-17.5); IMMATURE GRANULOCYTES 4.5 % (0-5); LYMPHOCYTES 4.6 % (15-50); MCH 28.8 pg (26.0-34.0); MCHC 31.3 g/dL (31.0-37.0); MCV 92.1 fL (80.0-100.0); MEAN PLATELET VOLUME 10.4 fL (7.4-10.4); MONOCYTES 3.6 % (2-11); PLATELET COUNT 228 10x3/uL (130-400); RBC 3.65 10x6/uL (4.20-6.10); RDW 16.8 % (11.5-14.5); WBC 22.3 10x3/uL (4.8-10.8)
[2017-06-05 05:01] LABS: ANION GAP 6.5 mmol/L (8-16); CALCIUM 8.5 mg/dL (8.5-10.1); CARBON DIOXIDE 35.3 mmol/L (21.0-32.0); CREATININE - SERUM 1.1 mg/dL (0.6-1.3); PHOSPHOROUS 4.5 mg/dL (2.5-4.9); POTASSIUM - SERUM 4.8 mmol/L (3.5-5.1)
--- NOTE | 2017-06-05 05:52 | NUR ---
ANESTHESIA/DR ORLANDO ON UNIT AND REVIEWING CHART. NEW BP'S OBTAINED AND PLACED ON FRONT OF CHART. OKAYED PER DR ORLANDO TO GIVE PREOP MEDS AND HE WAS PLACING SOME ADDITIONAL ORDERS TO ALSO BE GIVEN BEFORE PT LEFT FLOOR, IF PHARMACY ARRIVED IN TIME TO OBTAIN THE MEDS, IF NOT, THEN THE MEDS WOULD BE GIVEN IN PREOP. ADMINISTERED IV REGLAN/ROBINUL/PEPCID AND APPLIED NITRO PASTE TO EACH 1 INCH TO INCH WRIST AND COVERED WITH TEGADERM. RECIEVED CALL FROM DR ORLANDO SAYING TO NOT GIVE THE ADDITIONAL MEDS AT THIS TIME, AND IT WAS OKAY THAT THE OTHER MEDS HAD BEEN GIVEN. PT WILL NOW BE GOING SECOND ON SURGERY FOLLOWING A STAT CASE. NOTIFIED PATIENT AND THAT HE WILL BE LEAVING FLOOR A LITTLE BIT LATER THAN HE EXPECTED DUE TO AN EMERGENT SURGERY THAT WAS CURRENTLY BEING DONE. PT NOW VISITING WITH /KIDS AND RESTING.
--- NOTE | 2017-06-05 07:30 | NUR ---
PT IN BED [id number] RESP UNLABORED 02 ON 7 LPM PER OXIMIZER AWAITING SUGERY DENIES ANY NEEDS OR DISCOMFORT
--- NOTE | 2017-06-05 08:40 | NUR ---
PREOP MEDS GIVEN PO PT TO SURGERY VIA BED WITH OR STAFF
--- NOTE | 2017-06-05 13:17 | NUR ---
PT ARRIVED TO ROOM. HAS ETT, TO BE VENTILATED. 8.0 AND 19 AT THE LIPLINE. ADJUSTED TO 20 BY RT. PT HAS MEPILEX DRESSING TO RIGHT LATERAL CHEST THAT IS INTACT, NO DRAINAGE NOTED. HAS LOWER RIGHT LATERAL CHEST TUBE WITH GAUZE DRESSING INTACT. NO DRAINAGE NOTED ON DRESSING. CHEST TUBE IS AT 20CM SUCTION WITH NO AIR LEAK NOTED. PT HAS RIGHT SUBCLAVIAN CENTRAL LINE AND RIGHT RADIAL ART LINE. CRITICORE GARCIA CATHETER. ERICK'S AND SCD'S. PT HAS FENTANYL EPIDURAL. EXCESS LINE TAPED TO PT LEFT SHOULDER. DRESSING AT BACK IS INTACT. SMALL BLOOD NOTED UP UNDER CLEAR DRESSING AND ON GAUZE..
--- NOTE | 2017-06-05 13:37 | NUR ---
SPEICIMENS TO LAB PLURAL FULID FOR CULTURES AND FUNGUS AND TB RIGHT UPPER LOBE TISSUE FOR CULTURES TB FUNGUS AND PATHOLOGY RIGHT MIDDLE LOBE TISSUE FOR CULTURES TB FUNGUS AND PATHOLOGY RIGHT LOWER LOBE TISSUE FOR CULTURES TB FUNGUS AND PATHOLOGY
--- NOTE | 2017-06-05 14:10 | NUR ---
FAMILY AT BEDSIDE AT THIS TIME. PT SEDATED WITH PROPOFOL
--- NOTE | 2017-06-05 15:10 | NUR ---
PT ON MAX DOSE OF PROPOFOL AND TRYING TO SIT UP IN THE BED. ATTEMPTING TO RAISE ARMS TO UPPER BODY. KICKING FEET AROUND. ANESTHESIA PAGED TO COME CHECK EPIDURAL. WHEN PATIENT ASKED IF HE IS HURTING HE NODS HIS HEAD UP AND DOWN.
--- NOTE | 2017-06-05 16:02 | NUR ---
DR ELLIS BY TO CHECK ON PATIENT. PT RESTING QUIETLY AT THIS TIME. DR HERCULES HAD COME BY EARLIER TO CHECK ON EPIDURAL AND GAVE PT BOLUS.
--- NOTE | 2017-06-05 16:58 | NUR ---
PT RESTING COMFORTABLY AT THIS TIME. NO DISTRESS. PT SEDATED. IS ON 66MCG OF PROPOFOL. EFRAIN STARTED AT 1620 DUE TO DROP IN PRESSURE. CURRENTLY IS RUNNING AT 0.10MCG/KG/MIN AND MAINTAINING BP IN LOW 110'S.
--- NOTE | 2017-06-05 21:20 | NUR ---
FAMILY AT BS, PT SITTING UP IN BED, COUGHING AGAINST VENT - FAMILY EDUCATED ON DECREASED STIMULATION WHILE INTUBATED. EFRAIN GTT WEANED OFF AT THIS TIME. UPDATE GIVEN AND QUESTIONS ANSWERED.
--- NOTE | 2017-06-05 22:00 | NUR ---
PT SEDATED, NO SIGN OF DISTRESS. VSS.
--- NOTE | 2017-06-05 23:26 | NUR ---
REASSESSMENT PER FLOWSHEET, NO ACUTE CHANGES. R CT PATENT, DSG C/D/I, NO AIR LEAK. PT WILL AROUSE TO STIMULI AND NOD HEAD APPROP. CONT CLOSE MONITORING. VSS.
[2017-06-06] VITALS (27 sets, daily range): BP systolic 95–156; BP diastolic 43–71
--- NOTE | 2017-06-06 01:07 | NUR ---
ORAL CARE DONE AND PT REPOSITIONED UP IN BED TO L SIDE. PT TRYING TO TALK AND KICKING LEGS. SCATCHING AT SIDES OF ABD - ADM PRN BENADRYL. REORIENTED TO SITUATION/RESTRAINTS/VENT. CALMED AFTER A FEW MIN. WILL CONT CLOSE MONITORING.
--- NOTE | 2017-06-06 01:46 | NUR ---
FAMILY IN FROM OUT OF TOWN, ALLOWED BACK. UPDATE GIVEN AND QUESTIONS ANSWERED.
--- NOTE | 2017-06-06 03:00 | NUR ---
COMPLETE BATH AND LINEN CHANGE, WESTLEY-CARE AND BACK CARE DONE. ROM DONE.
--- NOTE | 2017-06-06 03:20 | NUR ---
REASSESSMENT PER FLOWSHEET, NO ACUTE CHANGES. RESTING QUIETLY AT THIS TIME. RT AT BS - AB PENDING. PCXR DONE.
[2017-06-06 06:03] LABS: HEMATOCRIT 30.7 % (42.0-54.0); HEMOGLOBIN 9.6 g/dL (13.5-17.5); MCH 29.3 pg (26.0-34.0); MCHC 31.3 g/dL (31.0-37.0); MCV 93.6 fL (80.0-100.0); MEAN PLATELET VOLUME 9.7 fL (7.4-10.4); RBC 3.28 10x6/uL (4.20-6.10); RDW 17.2 % (11.5-14.5); WBC 19.8 10x3/uL (4.8-10.8)
--- NOTE | 2017-06-06 06:04 | NUR ---
FAMILY AT BS, UPDATE GIVEN. AM LAB PENDING.
[2017-06-06 06:22] LABS: ALBUMIN 1.9 g/dL (3.4-5.0); ANION GAP 7.4 mmol/L (8-16); BILIRUBIN - TOTAL 0.28 mg/dL (0.2-1.3); CALCIUM 7.9 mg/dL (8.5-10.1); CARBON DIOXIDE 32.3 mmol/L (21.0-32.0); CREATININE - SERUM 1.2 mg/dL (0.6-1.3); POTASSIUM - SERUM 4.7 mmol/L (3.5-5.1); PROTEIN - SERUM 4.8 g/dL (6.4-8.2)
--- NOTE | 2017-06-06 07:00 | NUR ---
ASSUMED CARE OF PATIENT. ASSESSMENT COMPLETE. PT VENTILATED AND SEDATED. VITAL SIGNS STABLE.
--- NOTE | 2017-06-06 09:00 | NUR ---
FAMILY AT BEDSIDE. UPDATE PROVIDED TO FAMILY. PT SEDATED AT THIS TIME.
--- NOTE | 2017-06-06 09:23 | NUR ---
NUTRITION MONITORING & EVAL CHART REVIEWED, PT CURRENTLY NPO. WILL PROVIDE DIET WHEN RESUMED, MONITOR PO INTAKE. RD FOLLOWING
--- NOTE | 2017-06-06 11:00 | NUR ---
REASSESSMENT COMPLETE. SEE FLOWSHEET FOR FINDINGS. NO CHANGE TO VENTILATION SETTINGS. PT STILL SEDATED. NO PRESSORS REQUIRED.
--- NOTE | 2017-06-06 11:08 | NUR ---
Patient Name: HAYDEE ESCOBAR Encounter No: [id number] : 1955 Primary Insurance: MEDICARE A & B Anticipated DC Date: Planned Disposition: Home DCP follow-up note: Patient and family in agreement with discharge plan. No changes to plan. Case management will follow and assist as needed. Letha Burton
--- NOTE | 2017-06-06 12:00 | NUR ---
BLOOD GLUCOSE CHECKED. 117. NO INSULIN REQUIRED.
--- NOTE | 2017-06-06 13:30 | NUR ---
REC'D PT FROM [facility], PT SEDATED ON VENT, VSS. RIGHT A-LINE ZEROED, GOOD WAVE FORM, RIGHT SUBCLAVIAN CVL WITH FLUIDS INFUSING, DRESSING CDI. CT TO 20CM SUCTION, NO AIR LEAK NOTED, DRESSING CDI. GARCIA CATHETER FREE OF KINKS WITH URINE RETURN TO GRAVITY. VSS, WILL CONTINUE TO MONITOR PT.
--- NOTE | 2017-06-06 13:40 | NUR ---
PT TRANSFERED TO ROOM 2301.
--- NOTE | 2017-06-06 15:00 | NUR ---
REPOSITIONED PT, PROPPED WITH PILLOWS, REASSESSMENT COMPLETED, SEE FLOW SHEET. ROOM FREE OF CLUTTER, BED LOCKED IN LOWEST POSITION, WILL CONTINUE TO MONITOR PT.
--- NOTE | 2017-06-06 15:15 | NUR ---
PT FAMILY AT THE BEDSIDE, ALL QUESTIONS ANSWERED, VSS, WILL CONTINUE TO MONITOR PT.
[2017-06-06 15:19] LABS: ANCA - ANTIMYELOPEROXIDASE <9.0 U/mL (0.0-9.0); ANCA - ANTIPROTEINASE 3 <3.5 U/mL (0.0-3.5); ANCA - ATYPICAL <1:20 titer (Neg:<1:20); ANCA - CYTOPLASMIC <1:20 titer (Neg:<1:20); ANCA - PERINUCLEAR <1:20 titer (Neg:<1:20)
--- NOTE | 2017-06-06 18:29 | NUR ---
PT FAMILY AT THE BEDSIDE, ALL QUESTIONS ANSWERED. PTS BROUGHT PERSONAL CD PLAYER, WILL CALL ENGINEERING TO CHECK WIRES BEFORE USING. VSS, WILL CONTINUE TO MONITOR PT.
--- NOTE | 2017-06-06 19:15 | NUR ---
REPORT RECIEVED, SHIFT ASSESSMENT COMPLETE, PT IS SEDATED ON VENT, AROUSES TO VOICE, 8.0 ETT, 20 AT LIP, TAPED AND SECURE, ON 45% FIO2 WITH 98% O2 SAT. CRACKLES HEARD IN B/L UPPER LOBES, DIMINISHED IN B/L LOWER LOBES, S1S2, CM-NSR, PATENT RIGHT SC CVL WITH PLASMALYE @ 30 ML/HR AND PROPOFOL @ 70 MCG/KG/MIN INFUSING VIA PUMP, DRSG TO RIGHT LATERAL CHEST INCISION IS CDI, DRSG TO RIGHT CT IS CDI, TO 20 CM SUCTION, NO AIR LEAK NOTED, BLOODY DRAINGE, PATENT RIGHT RANJAN, GOOD WAVEFORM, EXTREMETY PINK AND WARM, ABDOMEN IS SOFT AND ROUND WITH ACTIVE BS, PATENT F/C WITH YELLOW UOP, TRACE EDEMA NOTED, ALL PPP, VSS, WILL CON'T TO MONITOR
[2017-06-06 20:08] LABS: ACID FAST SMEAR Negative (()); AFB SPECIMEN PROCESSING Concentration (()); AFB SPECIMEN PROCESSING Tissue Grinding (())
--- NOTE | 2017-06-06 21:17 | NUR ---
FAMILY AT BEDSIDE, UPDATE GIVEN
--- NOTE | 2017-06-06 23:07 | NUR ---
SON FROM [place] AT BEDSIDE, UPDATE GIVEN, REPOSITIONED FOR COMFORT, ORAL CARE PROVIDED,
[2017-06-07] VITALS (23 sets, daily range): BP systolic 95–153; BP diastolic 40–91
--- NOTE | 2017-06-07 01:15 | NUR ---
COMPLETE BATH AND LINEN CHANGED, RIGHT SC CVL DRSG CHANGED, RIGHT CT DRSG CHANGED, PT TOLERATED WELL
--- NOTE | 2017-06-07 03:00 | NUR ---
REASSESSMENT COMPLETE, NO CHANGES NOTED, PT REPOSITIONED FOR COMFORT, ORAL CARE PROVIDED
[2017-06-07 05:58] LABS: HEMATOCRIT 28.7 % (42.0-54.0); MCH 28.8 pg (26.0-34.0); MCHC 31.4 g/dL (31.0-37.0); MEAN PLATELET VOLUME 9.7 fL (7.4-10.4); RBC 3.12 10x6/uL (4.20-6.10); RDW 17.5 % (11.5-14.5)
[2017-06-07 06:00] LABS: WBC 13.4 10x3/uL (4.8-10.8)
[2017-06-07 06:21] LABS: ALBUMIN 1.7 g/dL (3.4-5.0); ALKALINE PHOSPHATASE 38 U/L (46-116); ALT (SGPT) 19 U/L (10-68); CALC OSMOLALITY 288 mosm/kg (275-300); CALCIUM 7.8 mg/dL (8.5-10.1); CARBON DIOXIDE 34.5 mmol/L (21.0-32.0); CHLORIDE - SERUM 106 mmol/L (98-107); CREATININE - SERUM 0.9 mg/dL (0.6-1.3); GLUCOSE 87 mg/dL (74-106); POTASSIUM - SERUM 3.6 mmol/L (3.5-5.1); PROTEIN - SERUM 4.6 g/dL (6.4-8.2); SODIUM 144 mmol/L (136-145); UREA NITROGEN 20 mg/dL (7-18); eGFR NON AFRICAN AMERICAN > 90 mL/min (90-120)
[2017-06-07 13:16] LABS: FUNGUS STAIN Final report (())
--- NOTE | 2017-06-07 19:00 | NUR ---
SHIFT ASSESSMENT COMPLETE, PATIENT SEDATED AND ON THE VENT. WILL OPEN EYES TO MY VOICE, BUT WON'T FOLLOW COMMANDS. PUPILS ARE ERRLA, ORAL CARE AND SUCTIONING PROVIDED AT THIS TIME. GAG REFLEX PRESENT. S1S2 WITH HR OF 86, NSR ON MONITOR. RR EVEN AND NONLABORED, CRACKLES HEARD IN [place], RUL, AND RML. DIMINISHED AT BASES. BS ACTIVE X4, ABDOMEN NON-DISTENDED AND NON-TENDER TO TOUCH. CRITICORE GARCIA DRAINING YELLOW URINE TO GRAVITY. TEMP OF 100.4, BED COVERS REMOVED, WILL MONITOR. PERIPHERAL PULSES +2. CT IN RIGHT LATERAL SIDE, DRAINING SMALL AMOUNTS OF SEROUS FLUID, NO KINKS NOTED. R SUBCLAVIAN CL DRESSING C/D/I, SEE IV DRIP FLOWSHEET FOR DRIPS. VSS, WILL MONITOR.
--- NOTE | 2017-06-07 21:00 | NUR ---
FAMILY AT BEDSIDE, UPDATE GIVEN.
--- NOTE | 2017-06-07 23:00 | NUR ---
REASSESSMENT COMPLETE, NO ACUTE CHANGES. VSS. WESTLEY CARE AND GARCIA CARE PROVIDED AT THIS TIME ALONG WITH SUCTIONING AND ORAL CARE. WILL MONITOR.
[2017-06-08] VITALS (25 sets, daily range): BP systolic 84–138; BP diastolic 44–68
--- NOTE | 2017-06-08 01:00 | NUR ---
PATIENT RESTING WELL ON VENT. VSS. RR EVEN AND NONLABORED. WILL MONITOR.
--- NOTE | 2017-06-08 03:00 | NUR ---
REASSESSMENT COMPLETE, NO ACUTE CHANGES. VSS, WILL MONITOR.
--- NOTE | 2017-06-08 05:00 | NUR ---
VSS, RR EVEN. RESTING WELL ON VENT.
[2017-06-08 06:07] LABS: HEMATOCRIT 28.5 % (42.0-54.0); HEMOGLOBIN 8.9 g/dL (13.5-17.5); MCH 28.9 pg (26.0-34.0); MCHC 31.2 g/dL (31.0-37.0); MCV 92.5 fL (80.0-100.0); MEAN PLATELET VOLUME 9.8 fL (7.4-10.4); RBC 3.08 10x6/uL (4.20-6.10); RDW 17.4 % (11.5-14.5)
[2017-06-08 06:12] LABS: WBC 18.1 10x3/uL (4.8-10.8)
[2017-06-08 06:37] LABS: ALBUMIN 1.7 g/dL (3.4-5.0); ALKALINE PHOSPHATASE 43 U/L (46-116); ALT (SGPT) 18 U/L (10-68); BILIRUBIN - TOTAL 0.32 mg/dL (0.2-1.3); CALC OSMOLALITY 284 mosm/kg (275-300); CARBON DIOXIDE 33.4 mmol/L (21.0-32.0); CHLORIDE - SERUM 103 mmol/L (98-107); CREATININE - SERUM 0.9 mg/dL (0.6-1.3); GLUCOSE 161 mg/dL (74-106); POTASSIUM - SERUM 4.1 mmol/L (3.5-5.1); PROTEIN - SERUM 5.3 g/dL (6.4-8.2); SODIUM 140 mmol/L (136-145); UREA NITROGEN 21 mg/dL (7-18); eGFR NON AFRICAN AMERICAN > 90 mL/min (90-120)
--- NOTE | 2017-06-08 07:00 | NUR ---
PT REPORT REC'D, PT CARE ASSUMED. PT SEDATED ON VENT, OPENS EYES TO VOICE. RIGHT LATERAL CHEST TUBE TO 20CM SUCTION, NO AIR LEAK NOTED, SEROUS DRAINAGE, DRESSING INTACT. RIGHT SUBCLAVIAN CVL WITH FLUIDS INFUSING, SEE FLOW SHEET, DRESSING CDI. GARCIA CATHETER FREE OF KINKS TO GRAVITY WITH URINE RETURN. SCD'S, ERICK'S. SHIFT ASSESSMENT COMPLETED, SEE FLOW SHEET. ROOM FREE OF CLUTTER, BED LOCKED IN LOWEST POSITION, BED ALARM ACTIVE, CALL LIGHT IN REACH, WILL CONTINUE TO MONITOR PT.
--- NOTE | 2017-06-08 09:06 | NUR ---
DR. MARIANO AT THE BEDSIDE, [facility], WILL CONTINUE TO MONITOR PT.
--- NOTE | 2017-06-08 09:15 | NUR ---
PT FAMILY AT THE BEDSIDE, ALL QUESTIONS ANSWERED, VSS, WILL CONTINUE TO MONITOR PT.
--- NOTE | 2017-06-08 09:23 | NUR ---
DR. HERNANDEZ SPEAKING WITH FAMILY, VSS, WILL CONTINUE TO MONITOR PT.
--- NOTE | 2017-06-08 10:01 | NUR ---
Nutrition follow-up: Pt intubated, sedated with propofol @ 27 ml/hr. Labs reviewed NPO Wt: 179# If pt remains intubated, recommend starting Pulmocare @ 20 ml/hr with slow increase to goal rate of 50 ml/hr. RDN following.
--- NOTE | 2017-06-08 11:00 | NUR ---
REPOSITIONED PT, PROPPED WITH PILLOWS, REASSESSMENT COMPLETED, SEE FLOW SHEET. ROOM FREE OF CLUTTER, CALL LIGHT IN REACH, WILL CONTINUE TO MONITOR PT.
--- NOTE | 2017-06-08 12:12 | NUR ---
PT FAMILY AT THE BEDSIDE, ALL QUESTIONS ANSWERED, VSS, WILL CONTINUE TO MONITOR PT.
--- NOTE | 2017-06-08 12:19 | NUR ---
DR. HERNANDEZ SPOKE WITH DR. ROBERTSON TO INFORM OF CONSULT ON PT.
--- NOTE | 2017-06-08 13:00 | NUR ---
COMPLETE BED BATH AND LINEN CHANGE. CHANGED RIGHT LATERAL CHEST, CHEST TUBE DRESSING, VSS, REPOSITIONED PT, PROPPED WITH PILLOWS, WILL CONTINUE TO MONITOR PT.
--- NOTE | 2017-06-08 15:00 | NUR ---
REPOSITIONED PT, PROPPED WITH PILLOWS, VSS, REASSESSMENT COMPLETED, SEE FLOW SHEET. ROOM FREE OF CLUTTER, CALL LIGHT IN REACH, WILL CONTINUE TO MONITOR PT.
--- NOTE | 2017-06-08 15:29 | NUR ---
PT FAMILY AT THE BEDSIDE, ALL QUESTIONS ANSWERED, VSS, WILL CONTINUE TO MONITOR PT.
--- NOTE | 2017-06-08 18:33 | NUR ---
PT LEFT HAND TWITCHING, PT NON RESPONSIVE TO STERNAL RUB, INFORMED DR. HERNANDEZ, ORDERS REC'D.
--- NOTE | 2017-06-08 18:40 | NUR ---
TRANSFERRED PT TO CT, RETURNED, CONNECTED PT TO MONITORS.
--- NOTE | 2017-06-08 19:00 | NUR ---
SPOKE WITH PTS FAMILY, PTS SON STATED "HE TOLD ME THAT HE HAD BLACKOUT SPELLS AT HOME, THIS STARTED ABOUT 3 WEEKS AGO" PTS DENIES ANY KNOWLEDGE OF THE "BLACKOUT SPELLS" PTS STATES THAT PT "HAD A SON WHO IN 1982 FROM SEIZURES AND HAS A GRANDSON THAT HAS EPILEPSY. HE HAS HAD 3 INCIDENTS OF THE SEIZURE LIKE ACTIVITY SINCE HE HAS BEEN HERE, BUT NEVER BEFORE HE WAS HOSPITALIZED. I DON'T KNOW IF HIS PARENTS HAVE ANY HISTORY OF HAVING SEIZURES." INFORMED FAMILY THAT A CT WAS ORDERED, AND A CONSULT FOR DR. OVALLE, OUR NERUOLOGIST WAS ORDERED.
--- NOTE | 2017-06-08 19:15 | NUR ---
SHIFT ASSESSMENT COMPLETE, SEE FLOWSHEET. PATIENT JUST RETURNED FROM CT OF THE HEAD. PLACED BACK ON VENT. CURRENTLY SEDATED WITH PPROPOFOL AND FENTANYL. PATIENT HAD SEIZURE LIKE ACTIVITY EARLIER AND WAS UNRESPONSIVE AND EYES ROLLED BACK IN HEAD PER FAMILY. STILL UNRESPONSIVE AT THIS TIME. CURRENTLY WEANING OFF PROPOFOL. VSS AT THIS TIME. ALLOWING FAMILY TO COME BACK TO SEE HIM. WILL MONITOR.
--- NOTE | 2017-06-08 19:36 | NUR ---
NOTIFIED DR. OVALLE OF CONSULT, "HAVE THE RADIOLOGIST CALL ME WITH THE CT RESULTS PLEASE."
--- NOTE | 2017-06-08 21:00 | NUR ---
FAMILY BACK FOR VISITATION.
--- NOTE | 2017-06-08 21:15 | NUR ---
PATIENT'S FAMILY CALLED ME INTO ROOM, STATED HE WAS DOING THE SAME SEIZURE LIKE ACTIVITY THAT HE WAS DOING EARLIER. ARMS AND LEGS ARE TWITCHING, PUPILS ARE 2MM AND REACTIVE TO LIGHT. WILL NOT FOLLOW COMMANDS. VSS, NO SIGNIFICANT CHANGES. DID THIS FOR ABOUT 30 SECONDS. WILL MONITOR.
--- NOTE | 2017-06-08 23:00 | NUR ---
REASSESSMENT COMPLETE, SEE FLOWSHEET. VSS
[2017-06-09] VITALS (30 sets, daily range): BP systolic 89–150; BP diastolic 24–78
--- NOTE | 2017-06-09 01:00 | NUR ---
PATIENT TURNED PER PROTOCOL, ORAL CARE GIVEN AT THIS TIME. TOLERATED WELL.
--- NOTE | 2017-06-09 03:00 | NUR ---
REASSESSMENT COMPLETE, RR EVEN AND NONLABORED. VSS. NO ACUTE CHANGES. WILL MONITOR.
--- NOTE | 2017-06-09 05:00 | NUR ---
RESTING WELL, TURNED AND REPOSISTIONED IN BED. ORAL CARE PROVIDED.
--- NOTE | 2017-06-09 06:00 | NUR ---
FAMILY AT BEDSIDE, UPDATE PROVIDED.
[2017-06-09 06:20] LABS: BASOPHILS 0.1 % (0-2); EOSINOPHILS 0 % (0-7); HEMATOCRIT 28.6 % (42.0-54.0); IMMATURE GRANULOCYTES 1.5 % (0-5); LYMPHOCYTES 7.5 % (15-50); MCH 29.1 pg (26.0-34.0); MCHC 31.5 g/dL (31.0-37.0); MCV 92.6 fL (80.0-100.0); MEAN PLATELET VOLUME 10.6 fL (7.4-10.4); MONOCYTES 4.4 % (2-11); NEUTROPHILS 86.5 % (40-80); PLATELET COUNT 197 10x3/uL (130-400); RBC 3.09 10x6/uL (4.20-6.10); WBC 12.4 10x3/uL (4.8-10.8)
[2017-06-09 06:51] LABS: ALBUMIN 1.8 g/dL (3.4-5.0); ALKALINE PHOSPHATASE 43 U/L (46-116); CALC OSMOLALITY 285 mosm/kg (275-300); CALCIUM 8.4 mg/dL (8.5-10.1); CARBON DIOXIDE 33.9 mmol/L (21.0-32.0); CHLORIDE - SERUM 104 mmol/L (98-107); CREATININE - SERUM 0.8 mg/dL (0.6-1.3); GLUCOSE 140 mg/dL (74-106); MAGNESIUM - SERUM 2.3 mg/dL (1.8-2.4); POTASSIUM - SERUM 4.6 mmol/L (3.5-5.1); PROTEIN - SERUM 5.6 g/dL (6.4-8.2); SODIUM 140 mmol/L (136-145); UREA NITROGEN 26 mg/dL (7-18); eGFR NON AFRICAN AMERICAN > 90 mL/min (90-120)
[2017-06-09 06:55] LABS: ALT (SGPT) 23 U/L (10-68); C-REACTIVE PROTEIN 27.5 mg/dL (0.0-0.9)
[2017-06-09 07:34] LABS: ERYTHROCYTE SEDIMENTATION RATE 60 mm/hr (0-20)
--- NOTE | 2017-06-09 09:48 | NUR ---
Nutrition follow-up: Intubaed, sedated NPO Labs reviewed Recommend starting Pulmocare @ 20 ml/hr with increase to goal rate of 50 ml/hr. RDN following.
--- NOTE | 2017-06-09 11:24 | NUR ---
0715-RECIEVED PER FLOW SHEET-DR OVALLE AT BEDSIDE-GREG AND NAVIDRICARLOS STOPPED AT
--- NOTE | 2017-06-09 12:19 | NUR ---
0815-DIPRIVAN TIRTRATED TO 15MCG/KG/MIN-FENTANYL AT 350MCG- 0845-CEREBYX 1G IV BOLUS-STARTED ORDERED-REPOSITIONED TO R SIDE- 50-OGT PLACED AND CONFIRMED WITH AIR BOLUS AND ASPIRATION OF 100ML BILE PULMOCARE STARTED AT 20ML/H VIA FEEDING PUMP PT CONTINUES JERKING/ ATTEMPTING TO PULL AT RESTRAINTS/ CURLING L HAND TO REACH ET TUBE-POSITIONED WITH HEAD ELEVATED AT 30 DEGREES FOR ASPIRATION PRECAUTIONS-RESTRAINTS SECURED-KBRN 1015-EEG SETUP IN PROGRESS 1100-LAB DRAWN FOR DILANTIN LEVEL- 1130-ALL SEDATION STOPPED FOR EEG DIRECTED-DISCUSSED WITH DR HERNANDEZ DIFFERENT SEDATION OPTIONS DIRECTED BY DR MARIANO AND YAMILE-ORDER RECIEVED AND NOTED 1145-DIPRIVAN RESUMED AT 15MCG AND VERSED SET UP IN PROGRESS-FENTANYL D/C'D
--- NOTE | 2017-06-09 19:00 | NUR ---
SHIFT ASSESSMENT COMPLETE, PATIENT SEDATED AND ON VENT, BUT THRASHING IN BED. SEDATION TITRATED UP. O2 SAT 87% AT THIS TIME. ORAL CARE PERFORMED AND SUCTIONING PROVIDED, O2 SAT REMAINED AROUND 90%. RESPIRATORY PAGED. RT INCREASED O2 FROM 45% TO 55%. S1S2, PATIENT SINUS TACH WITH RATE OF 104. CRACKLES HEARD WITH LUNG SOUNDS. RR EVEN AND NONLABORED. SEE FLOWSHEET FOR VENT SETTINGS. ABDOMEN ROUND, BOWEL SOUNDS ACTIVE X4. SOFT AND NONTENDER TO PALPATION. PULMOCARE GOING AT 20CC VIA OG TUBE. RESIDUAL AMOUNT 20CC. GARCIA DRAINING CLEAR YELLOW URINE TO GRAVITY. TEMP IS CURRENTLY 102.3F VIA CRITICORE. FAN PLACED ON PATIENT ALONG WITH ICE PACKS. COVERS REMOVED. WILL MONITOR. PERIPHERAL PULSES +2. RIGHT SUBCLAVIAN CL DRESSING C/D/I, BIOPATCH IN PLACE. SWAB CAPS IN USE. SEE IV DRIP FLOWSHEET FOR DRIPS.
--- NOTE | 2017-06-09 20:10 | NUR ---
PATIENT O2 SAT DROPPED IN 80'S AGAIN, RT INCREASED TO 65% O2 AND DID BLOOD GAS. TEMP ALSO INCREASED TO 103.5. BLOOD X2, URINE, AND RESPIRATORY CULTURES ORDERED. DR ROBERTSON CALLED FOR FURTHER ORDERS.
--- NOTE | 2017-06-09 20:20 | NUR ---
BLOOD GAS SHOWED LOW O2, RT RAISED VENT SETTINGS TO 100% O2. WILL MONITOR.
--- NOTE | 2017-06-09 21:00 | NUR ---
FAMILY AT BEDSIDE, UPDATE GIVEN. PATIENT MUCH CALMER NOW.
--- NOTE | 2017-06-09 23:00 | NUR ---
REASSESSMENT COMPLETE, TEMP NOW 100.9 PER CRITICORE. HR 78 WITH NSR ON MONITOR. O2 SAT CURRENTLY 98%. NO OTHER CHANGES. CHEST TUBE DRESSING CHANGED, ALONG WITH LINENS.
[2017-06-10] VITALS (24 sets, daily range): BP systolic 84–163; BP diastolic 46–74
--- NOTE | 2017-06-10 01:00 | NUR ---
TEMP CURRENTLY 99.9. VSS. ORAL CARE PROVIDED, TURNED. WILL MONITOR.
--- NOTE | 2017-06-10 03:00 | NUR ---
REASSESSMENT COMPLETE, TEMP DOWN TO 98.6. NO OTHER CHANGES TO NOTE. SEE FLOWSHEET FOR DETAILS.
--- NOTE | 2017-06-10 05:00 | NUR ---
RESTING WELL ON VENT. VSS. WILL MONITOR
--- NOTE | 2017-06-10 06:00 | NUR ---
FAMILY AT BEDSIDE, UPDATE GIVEN.
[2017-06-10 06:15] LABS: HEMATOCRIT 30.2 % (42.0-54.0); HEMOGLOBIN 9.5 g/dL (13.5-17.5); MCH 29.1 pg (26.0-34.0); MCHC 31.5 g/dL (31.0-37.0); MCV 92.4 fL (80.0-100.0); PLATELET COUNT 193 10x3/uL (130-400); RBC 3.27 10x6/uL (4.20-6.10); RDW 16.7 % (11.5-14.5); WBC 24.9 10x3/uL (4.8-10.8)
[2017-06-10 06:34] LABS: ALBUMIN 1.6 g/dL (3.4-5.0); ALKALINE PHOSPHATASE 49 U/L (46-116); ALT (SGPT) 24 U/L (10-68); BILIRUBIN - TOTAL 0.39 mg/dL (0.2-1.3); CALC OSMOLALITY 288 mosm/kg (275-300); CARBON DIOXIDE 32.7 mmol/L (21.0-32.0); CHLORIDE - SERUM 105 mmol/L (98-107); CREATININE - SERUM 0.7 mg/dL (0.6-1.3); GLUCOSE 148 mg/dL (74-106); MAGNESIUM - SERUM 1.9 mg/dL (1.8-2.4); PROTEIN - SERUM 5.4 g/dL (6.4-8.2); SODIUM 141 mmol/L (136-145); UREA NITROGEN 26 mg/dL (7-18); eGFR NON AFRICAN AMERICAN > 90 mL/min (90-120)
[2017-06-10 06:35] LABS: POTASSIUM - SERUM 3.8 mmol/L (3.5-5.1)
--- NOTE | 2017-06-10 06:45 | NUR ---
DR OVALLE AT BEDSIDE. NEW ORDERS RECEIVED.
[2017-06-10 06:51] LABS: EOSINOPHILS 1 % (0-7); LYMPHOCYTES 9 % (15-50); NEUTROPHILS 86 % (40-80)
[2017-06-10 06:52] LABS: PLATELET ESTIMATE DECREASED
--- NOTE | 2017-06-10 07:00 | NUR ---
REC'D CARE OF PT. SEDATED ON VENT.
--- NOTE | 2017-06-10 09:32 | NUR ---
FAMILY AT BEDSIDE. UPDATED. CONCERNS ADRESSED. QUESTIONS ANSWERED.
--- NOTE | 2017-06-10 09:33 | NUR ---
TITRATING DIPRIVAN TO EFFECT.
--- NOTE | 2017-06-10 10:12 | NUR ---
BREATHS OVER THE VENT. RR 22.
--- NOTE | 2017-06-10 10:16 | NUR ---
BLOOD BEING DRAWN FOR DILANTIN LEVEL.
--- NOTE | 2017-06-10 10:38 | NUR ---
PROGRAM DIR REMAINS AT BEDSIDE TRYING TO DRAW BLOOD FOR DILANTIN LEVEL.
--- NOTE | 2017-06-10 11:00 | NUR ---
DR. HERNANDEZ GAVE UPDATE TO FAMILY.
--- NOTE | 2017-06-10 12:28 | NUR ---
FAMILY AT BEDSIDE. UPDATED BY DR. HERNANDEZ AGAIN.
--- NOTE | 2017-06-10 12:30 | NUR ---
CALLED AND LEFT DIALANTIN LEVEL RESULTS ON ANSWERING MACHINE OF DR. OVALLE'S CELL PHONE.
--- NOTE | 2017-06-10 12:36 | NUR ---
REMAINS SEDATED ON VENT. WAKES UP ON SEDATION VACATION AND FLINGS AROUND AND TRIES TO GET OOB. RIGHT SCDL. DRSG CD&I. STERILE CAPS IN PLACE. SEDATED WITH DIPRIVAN AND VERSED. TURNING Q2 HOURS AND ORAL CARE BEING PERFORMED Q2 HOURS. HEELS ARE BRIDGED. SCDS. MILLER.PPP. CM=NS RATE OF 71. NO ECTOPY SEEN. DIPRIVAN BEING TITRATED TO EFFECT. TF INFUSING VIA OGT. NO RESIDUALS. CPOC.
--- NOTE | 2017-06-10 13:04 | NUR ---
ATTEMPTED TO CALL DR. OVALLE AND UPDATE ABOUT DILANTIN LEVEL. NO ANSWER.
--- NOTE | 2017-06-10 15:00 | NUR ---
FAMILY AT BEDSIDE. UPDATED.
--- NOTE | 2017-06-10 17:30 | NUR ---
REPOSITIONED FOR COMFORT AND TO PRESERVE SKIN INTEGRITY.
--- NOTE | 2017-06-10 18:21 | NUR ---
FAMILY AT BEDSIDE. UPDATED.
--- NOTE | 2017-06-10 19:00 | NUR ---
SHIFT ASSESSMENT COMPLETE, PATIENT SEDATED ON VENT. RESTING WELL. RR EVEN AND NONLABORED. S1S2 WITH NSR ON MONITOR. TUBE FEEDINGS GOING AT 30CC VIA OG TUBE, RESIDUAL OF 30CC. GARCIA DRAINING [place] COLORED URINE TO GRAVITY, NO KINKS NOTED. AFEBRILE. PERIPHERAL PULSES +2. CT SITE C/D/I. 20CM SUCTION, SEROUS DRAINAGE NOTED IN SMALL AMOUNTS. RIGHT SUBCLAVIAL CL DRESSING C/D/I, WITHOUT REDNESS. SWAB CAPS IN USE. VSS, WILL MONITOR.
--- NOTE | 2017-06-10 21:00 | NUR ---
FAMILY AT BEDSIDE, MEDS GIVEN.
--- NOTE | 2017-06-10 23:00 | NUR ---
REASSESSMENT COMPLETE, SEE FLOWSHEET FOR DETAILS. NO ACUTE CHANGES. RESTING WELL ON VENT.
[2017-06-11] VITALS (24 sets, daily range): BP systolic 97–130; BP diastolic 49–69
--- NOTE | 2017-06-11 01:00 | NUR ---
PATIENT TURNED AND CLEANED UP. TOLERATED WELL.
--- NOTE | 2017-06-11 03:00 | NUR ---
REASSESSMENT COMPLETE, NO ACUTE CHANGES, SEE FLOWSHEET. VSS. TURNED AND ORAL CARE PROVIDED.
--- NOTE | 2017-06-11 05:00 | NUR ---
RESTING WELL, VSS, RR EVEN.
--- NOTE | 2017-06-11 06:00 | NUR ---
PATIENT AT BEDSIDE, UPDATE PROVIDED.
[2017-06-11 06:13] LABS: BASOPHILS 0 % (0-2); EOSINOPHILS 0.1 % (0-7); HEMATOCRIT 27.1 % (42.0-54.0); HEMOGLOBIN 8.6 g/dL (13.5-17.5); IMMATURE GRANULOCYTES 0.7 % (0-5); LYMPHOCYTES 4.6 % (15-50); MCH 28.9 pg (26.0-34.0); MCHC 31.7 g/dL (31.0-37.0); MCV 90.9 fL (80.0-100.0); MEAN PLATELET VOLUME 10.2 fL (7.4-10.4); MONOCYTES 2.8 % (2-11); NEUTROPHILS 91.8 % (40-80); PLATELET COUNT 191 10x3/uL (130-400); RBC 2.98 10x6/uL (4.20-6.10); RDW 16.5 % (11.5-14.5); WBC 15.3 10x3/uL (4.8-10.8)
[2017-06-11 06:30] LABS: ALBUMIN 1.4 g/dL (3.4-5.0); ALKALINE PHOSPHATASE 50 U/L (46-116); ALT (SGPT) 21 U/L (10-68); BILIRUBIN - TOTAL 0.27 mg/dL (0.2-1.3); CALCIUM 7.8 mg/dL (8.5-10.1); CARBON DIOXIDE 32.3 mmol/L (21.0-32.0); CHLORIDE - SERUM 103 mmol/L (98-107); CREATININE - SERUM 0.8 mg/dL (0.6-1.3); POTASSIUM - SERUM 4.2 mmol/L (3.5-5.1); PROTEIN - SERUM 5.3 g/dL (6.4-8.2); SODIUM 139 mmol/L (136-145); UREA NITROGEN 29 mg/dL (7-18); eGFR NON AFRICAN AMERICAN > 90 mL/min (90-120)
[2017-06-11 06:31] LABS: CALC OSMOLALITY 291 mosm/kg (275-300); GLUCOSE 251 mg/dL (74-106)
--- NOTE | 2017-06-11 07:00 | NUR ---
REC'D CARE OF PT. SEDATED ON VENT.VSS.
--- NOTE | 2017-06-11 08:42 | NUR ---
SEDATED ONV VENT. ETT PROPERLY SECURED. AC RATE OF 18, TV 600, FIO2 60%, PEEP=8. BREATHING OVER THE VENT RATE OF 23. NO DISTRESS. RIGHT SCDL WITH PLASMALYTE, VERSED AND DIPRIVAN INFUSING. MILLER WHEN SEDATION VACATION IS IN PROGRESS. PPP. LUNGS CTA WITH DIMINISHING IN LOWER LOBES. GARCIA, PATENT TO GRAVITY WITH [place] URINE PRESENT IN TUBING AND STORAGE. SCD'S. OGT WITH PULMOCARE AT 40 CC/HR. NO RESIDUALS. PLACEMENT VERIFIED WITH AIR BOLUS.CPOC.
--- NOTE | 2017-06-11 09:24 | NUR ---
FAMILY AT BEDSIDE. UPDATED.
--- NOTE | 2017-06-11 11:59 | NUR ---
FSBS 156. HELD INSULIN NOT EATING, ON VENT.
--- NOTE | 2017-06-11 12:06 | NUR ---
FEEDING TUBING CHANGED OUT.
--- NOTE | 2017-06-11 12:55 | NUR ---
DR. HERNANDEZ AT BEDSIDE. HE DECREASED FIO2 TO 40%. SATTING 99% BEFORE DECREASING.
--- NOTE | 2017-06-11 13:01 | NUR ---
O2 SAT 98%.
[2017-06-11 13:08] LABS: FUNGUS MYCOLOGY CULTURE Preliminary report (())
--- NOTE | 2017-06-11 13:30 | NUR ---
DR. MARIANO AT BEDSIDE.
--- NOTE | 2017-06-11 14:00 | NUR ---
REC'D FROM OR AND HOOKED UP TO CM. CM=NS RATE OF 75. NO ECTOPY SEEN. ON VENT. ETT=8.0, 23 AT LIP. CHEST XRAY BEEN DONE FOR LINE PLACEMENT VERIFICATION. HAS LEFT SCTL AND LEFT SC HEMISPLIT. DRSG X2 CD&I. DATED. BIOPATCH AND STERILE CAPS IN PLACE. RIGHT UPPER ARM INCISION. DRSG CD&I. WOUND VAC AT LEFT UPPER THIGH WOUND AND PENECTOMY SURGERY SITE. SETTINGS ARE 125 mmHg, medium, CONTINUOS. GARCIA CATH INSERTED INTO URETHRA TO GRAVITY. SCANT PINK TINGED URINE IN STORAGE. PPP. MILLER.FOLLOWS COMMANDS. SEE FLOW SHEET FOR ADDITONAL ASSESSMENT. CPOC.
--- NOTE | 2017-06-11 15:22 | NUR ---
FAMILY AT BEDSIDE. UPDATED.
--- NOTE | 2017-06-11 17:30 | NUR ---
NO CHANGES. REMAINS ON VENT. SEDATED.
--- NOTE | 2017-06-11 18:00 | NUR ---
FAMILY AT BEDSIDE. UPDATED.
--- NOTE | 2017-06-11 19:00 | NUR ---
REPORT RECIEVED. ASSESSMENT COMPLETE PER FLOW SHEET. VSS. PT SEDATED CALM AND COOROPERATIVE. ORAL ENDOTRACH CARE ADM. WILL CONTINUE TO MONITOR
--- NOTE | 2017-06-11 19:40 | NUR ---
RESP NOTIFIED ETT BEEN DOCUMENTED 22CM NOW AT 19CM LIP LINE RIGHT. EXPIRATORY WHEEZING HEARD. INFLATED CUFF PRESSURE. O2 SAT 97% TV RETURN OVER 800. WILL CONTINUE TO MONITOR
--- NOTE | 2017-06-11 21:08 | NUR ---
FAMILY AT BEDSIDE. GIVEN UPDTAE.
--- NOTE | 2017-06-11 21:37 | NUR ---
SPOKE WITH FAMILY WANTING TO SPEAK WITH DR ABRAMS ABOUT PENDING LAB RESULTS WANTING TO BASE PT CODE STATUS OFF OF PENDING DX. WILL GIVEN MESSAGE TO ONCOMING SHIFT.
--- NOTE | 2017-06-11 23:23 | NUR ---
REASSESSMENT COMPLET EPER FLOW SHEET. VSS. NO NEW CHANGES. WILL CONTINUE TO MONITOR
[2017-06-12] VITALS (24 sets, daily range): BP systolic 88–159; BP diastolic 44–99
--- NOTE | 2017-06-12 01:00 | NUR ---
COMPLETE BB LINEN CHANGE ADM. R CHEST TUBE DRSG CHANGE ADM. SEROUS DRAINAGE NOTED. NO NEW CHANGES. WILL CONTINUE TO MONITOR VSS.
--- NOTE | 2017-06-12 02:10 | NUR ---
PT BUCKING VENT. RR 34. PROPOFOL INCREASED.
--- NOTE | 2017-06-12 02:56 | NUR ---
REASSESSMENT COMPLETE PER FLOW SHEET. VSS. NO NEW CHANGES. WILL CONTINUE TO MONITOR
--- NOTE | 2017-06-12 04:20 | NUR ---
RADIOLOGY AT BEDSIDE.
[2017-06-12 04:56] LABS: BASOPHILS 0 % (0-2); EOSINOPHILS 0 % (0-7); HEMATOCRIT 31.9 % (42.0-54.0); HEMOGLOBIN 10.1 g/dL (13.5-17.5); LYMPHOCYTES 3.9 % (15-50); MCH 28.6 pg (26.0-34.0); MCHC 31.7 g/dL (31.0-37.0); MCV 90.4 fL (80.0-100.0); MEAN PLATELET VOLUME 11.1 fL (7.4-10.4); MONOCYTES 2.2 % (2-11); NEUTROPHILS 92.9 % (40-80); PLATELET COUNT 246 10x3/uL (130-400); RBC 3.53 10x6/uL (4.20-6.10); RDW 16.6 % (11.5-14.5); WBC 21.5 10x3/uL (4.8-10.8)
[2017-06-12 05:08] LABS: ALBUMIN 1.6 g/dL (3.4-5.0); ALKALINE PHOSPHATASE 59 U/L (46-116); ALT (SGPT) 23 U/L (10-68); BILIRUBIN - TOTAL 0.28 mg/dL (0.2-1.3); CALC OSMOLALITY 292 mosm/kg (275-300); CALCIUM 7.9 mg/dL (8.5-10.1); CARBON DIOXIDE 29.5 mmol/L (21.0-32.0); CHLORIDE - SERUM 103 mmol/L (98-107); CREATININE - SERUM 0.8 mg/dL (0.6-1.3); GLUCOSE 277 mg/dL (74-106); POTASSIUM - SERUM 4.1 mmol/L (3.5-5.1); PROTEIN - SERUM 5.9 g/dL (6.4-8.2); SODIUM 138 mmol/L (136-145); UREA NITROGEN 31 mg/dL (7-18); eGFR NON AFRICAN AMERICAN > 90 mL/min (90-120)
--- NOTE | 2017-06-12 06:04 | NUR ---
FAMILY AT BEDSIDE. GIVEN UPDATE.
--- NOTE | 2017-06-12 07:15 | NUR ---
REPORT RECIEVED FROM INDIGO VAT TENDER CLOTH NURSE. SHIFT ASSESSMENT COMPLETE PER FLOWSHEET. REFER FOR DETAILS. WILL CONT TO ASSESS FOR CHANGES.
--- NOTE | 2017-06-12 08:45 | NUR ---
MARIPOSA INFANTE AT BEDSIDE TO REMOVE CT. DRESSING PLACED OVER SITE. NO COMPLICATIONS NOTED UPON REMOVAL.
--- NOTE | 2017-06-12 09:30 | NUR ---
DR. ABRAMS AT BEDSIDE. BRONCH WASHING PERFORMED AND ETT ADVANCED FOR PROPER PLACEMENT. 23CM AT THE LIP. BREATH SOUNDS EVEN AND CLEAR THROUGHOUT LUNG BASES. 98% SPO2. WILL CONT TO ASSESS.
--- NOTE | 2017-06-12 09:30 | NUR ---
DR. ABRAMS AT BEDSIDE. BRONCH WASHING PERFORMED AND ETT ADVANCED FOR PROPER PLACEMENT. 21CM AT THE LIP. BREATH SOUNDS EVEN AND CLEAR THROUGHOUT LUNG BASES. 98% SPO2. WILL CONT TO ASSESS.
--- NOTE | 2017-06-12 09:30 | NUR ---
ORAL CARE PROVIDED. PT TURNED AND REPOSITINED FOR COMFORT. WILL CONT TO ASSESS.
--- NOTE | 2017-06-12 09:49 | NUR ---
Nutrition follow-up: Pt intubated, sedated. Pulmocare infusing @ 40 ml/hr; goal rate is 50 ml/hr Labs reviewed Wt: 182# RDN following.
--- NOTE | 2017-06-12 11:30 | NUR ---
REASSESSMENT COMPLETE PER FLOWSHEET. NO ACUTE CHANGED NOTED.
--- NOTE | 2017-06-12 12:00 | NUR ---
FAMILY AT BEDSIDE. UPDATE PROVIDED.
[2017-06-12 12:11] LABS: FUNGUS MYCOLOGY CULTURE Preliminary report (())
--- NOTE | 2017-06-12 13:00 | NUR ---
FAMILY UPDATED PER DR. ROBERTSON AND DR. ABRAMS REGARDING PATHOLOGY REPORT.
--- NOTE | 2017-06-12 14:00 | NUR ---
FULL LINEN CHANGE COMPLETE. SMALL SMEAR OF STOOL NOTED TO RED PAD. INCONTINENT CARE PROVIDED ALONG WITH GARCIA CARE.
--- NOTE | 2017-06-12 15:00 | NUR ---
FAMILY AT BEDSIDE. UPDATE PROVIDED.
--- NOTE | 2017-06-12 17:00 | NUR ---
R-DLSC REMOVED PER ORDERS. OPSITE DRESSING PLACED OVER SITE. NO BLEEDING NOTED. ALL NEW IV LINES AND MEDICATIONS CHANGED TO LEFT MIDLINE.
--- NOTE | 2017-06-12 18:00 | EEG ---
PATIENT:HAYDEE ESCOBAR DATE OF SERVICE: 05/23/17 MEDICAL RECORD: [id number] DATE OF : 53 LOCATION:D.230 D.ICU ADMISSION DATE: 05/23/17 REFERRING PHYSICIAN: INTERPRETING PHYSICIAN: ABDIFATAH OVALLE MD DATE OF SERVICE: 06/09/2017 Referred by myself as an inpatient, currently in room 2301. ELECTROENCEPHALOGRAM NUMBER: [id number] DATE OF EXAMINATION: 06/09/2017 at 11:30 a.m. TECHNICAL DATA: This electroencephalographic recording consisted of approximately 20 minutes of data collection utilizing the international 10/20 system of electrode placement and both referential and non-referential montages. Sixteen channels of electrocerebral recording are accompanied by a 17th channel dedicated to the electrocardiographic rhythm and 2 channels of electromyographic recording. Recording is performed entirely in the lethargic state utilizing activation by photic stimulation as well as verbal and tactile stimulation. ELECTROENCEPHALOGRAPHIC DATA: The entirety of the recorded electrocerebral activity is performed in the lethargic state. Rapid eye movements are occasionally seen. Electromyographic artifact is prominent and partially obscures the recorded electrocerebral activity. A posterior dominant background has not developed. The study is monotonous and consists of a mixture of slow wave activities that are irregular in morphology, diffuse and symmetric in distribution. These range from 1-5 Hz predominantly in the delta range. No focal slowing is identified. No epileptiform discharges are seen. Photic stimulation as well as verbal and tactile stimulation induced. No significant change in the recorded electrocerebral activity. INTERPRETATION: Continuous slow, generalized (lethargy). This electroencephalographic recording is indicative of a moderate diffuse encephalopathy. TRANSINT:[id number] Voice Confirmation ID: [id number] DOCUMENT ID: [id number] ABDIFATAH OVALLE MD at 1800 CC: [id number] DICTATION DATE: 06/10/17 0632 WELLHEAD PUMPER: 06/10/17 1850 ADM IN [facility] [address] [place] [address]
--- NOTE | 2017-06-12 19:00 | NUR ---
REPORT RECIEVED. ASSESSMENT COMPLETE PER FLOW SHEET. VSS. ORAL ENDOTRACH CARE ADM. REPOSITIONED ON L SIDE. WILL CONTINUE TO MONITOR
--- NOTE | 2017-06-12 21:00 | NUR ---
2100 MEDS ADM WITHOUT DIFFICULTY FAMILY AT BEDSIDE. VSS. WILL CONTINUE TO MONITOR
--- NOTE | 2017-06-12 23:00 | NUR ---
REASSESSMENT COMPLETE PER FLOW SHEET. VSS. NO NEW CHANGES.
[2017-06-13] VITALS (25 sets, daily range): BP systolic 99–160; BP diastolic 51–75
--- NOTE | 2017-06-13 01:10 | NUR ---
REPOSITIONED ON R SIDE FOR COMFORT ORAL ENOTRACH CARE ADM. VSS WILL CONTINUE TO MONITOR
--- NOTE | 2017-06-13 03:22 | NUR ---
REASSESSMENT COMPLETE PER FLOW SHEET. VSS. NO NEW CHANGES. WILLCONTINUE TO MONITOR
[2017-06-13 04:24] LABS: BASOPHILS 0 % (0-2); EOSINOPHILS 0 % (0-7); HEMATOCRIT 27.9 % (42.0-54.0); HEMOGLOBIN 8.9 g/dL (13.5-17.5); LYMPHOCYTES 5.3 % (15-50); MCH 28.9 pg (26.0-34.0); MCHC 31.9 g/dL (31.0-37.0); MCV 90.6 fL (80.0-100.0); MEAN PLATELET VOLUME 10.7 fL (7.4-10.4); MONOCYTES 2.6 % (2-11); NEUTROPHILS 91.1 % (40-80); PLATELET COUNT 211 10x3/uL (130-400); RBC 3.08 10x6/uL (4.20-6.10)
[2017-06-13 04:41] LABS: ALBUMIN 1.6 g/dL (3.4-5.0); ALKALINE PHOSPHATASE 49 U/L (46-116); ALT (SGPT) 20 U/L (10-68); BILIRUBIN - TOTAL 0.31 mg/dL (0.2-1.3); CALC OSMOLALITY 290 mosm/kg (275-300); CALCIUM 8.1 mg/dL (8.5-10.1); CARBON DIOXIDE 28.9 mmol/L (21.0-32.0); CHLORIDE - SERUM 106 mmol/L (98-107); CREATININE - SERUM 0.9 mg/dL (0.6-1.3); GLUCOSE 165 mg/dL (74-106); PHOSPHOROUS 3.3 mg/dL (2.5-4.9); POTASSIUM - SERUM 4.3 mmol/L (3.5-5.1); PROTEIN - SERUM 5.5 g/dL (6.4-8.2); SODIUM 141 mmol/L (136-145); UREA NITROGEN 28 mg/dL (7-18); eGFR NON AFRICAN AMERICAN > 90 mL/min (90-120)
--- NOTE | 2017-06-13 07:00 | NUR ---
PT REPORT REC'D, PT CARE ASSUMED. PT SEDATED ON VENT, OPENS EYES AND GRIMACES FACE WITH MOVEMENT. LEFT UPPER ARM MIDLINE, DRESSING CDI, FLUIDS INFUSING, SEE FLOW SHEET. RIGHT CHEST DRESSING CDI. SCD'S, ERICK'S, AIR OVERLAY MATTRESS. SHIFT ASSESSMENT COMPLETED, SEE FLOW SHEET. ROOM FREE OF CLUTTER, BED LOCKED IN LOWEST POSITION, BED ALARM ACTIVE, WILL CONTINUE TO MONITOR PT.
--- NOTE | 2017-06-13 07:27 | NUR ---
DR. OVALLE AT THE BEDSIDE, VSS, WILL CONTINUE TO MONITOR PT.
--- NOTE | 2017-06-13 09:05 | NUR ---
PT FAMILY AT THE BEDSIDE, ALL QUESTIONS ANSWERED, VSS, WILL CONTINUE TO MONITOR PT.
--- NOTE | 2017-06-13 10:50 | NUR ---
DR. ABRAMS AT THE BEDSIDE, ALL QUESTIONS ANSWERED,VSS, WILL CONTINUE TO MONITOR PT.
--- NOTE | 2017-06-13 11:00 | NUR ---
REPOSITIONED PT, PROPPED WITH PILLOWS, VSS, REASSESSMENT COMPLETED, SEE FLOW SHEET. ROOM FREE OF CLUTTER, CALL LIGHT IN REACH, WILL CONTINUE TO MONITOR PT.
--- NOTE | 2017-06-13 14:32 | NUR ---
NOTIFIED DR. OVALLE OF PHENYTOIN LEVEL OF 8.8, "WE'LL LEAVE HIS DOSE HOW IT IS. IT'S BEEN A WHILE SINCE I HAVE DONE AN EEG ON HIM, DO AN EEG, IT CAN BE DONE TOMORROW." NOTIFIED EARL AT THE MONITOR STATION, INFORMED HER THAT EEG CAN BE DONE IN THE MORNING PER , "I WILL LEAVE THIS ORDER HERE FOR THEM TO GRAB IN THE MORNING."
--- NOTE | 2017-06-13 15:00 | NUR ---
REPOSITIONED PT, PROPPED WITH PILLOWS, PT FAMILY AT THE BEDSIDE, ALL QUESTIONS ANSWERED. VSS, REASSESSMENT COMPLETED, SEE FLOW SHEET. ROOM FREE OF CLUTTER, BED LOCKED IN LOWEST POSITION, BED ALARM ACTIVE, WILL CONTINUE TO MONTIOR PT.
--- NOTE | 2017-06-13 17:27 | NUR ---
PT RESTING WITH EYES CLOSED,NO SIGNS OF DISTRESS, VSS, REPOSITIONED, PROPPED WITH PILLOWS, WILL CONTINUE TO MONITOR PT.
--- NOTE | 2017-06-13 18:20 | NUR ---
PT FAMILY AT THE BEDSIDE, ALL QUESTIONS ANSWERED, VSS, WILL CONTINUE TO MONITOR PT.
--- NOTE | 2017-06-13 19:00 | NUR ---
REPORT RECIEVED, SHIFT ASSESSMENT COMPLETE, PT IS SEDATED ON VENT, AROUSES TO VOICE, ON 50% FIO2 WITH 98% O2 SAT. CRACKLES HEARD IN B/L UPPER LOBES, DIMINISHED IN B/L LOWER LOBES, S1S2, CM-NSR, PATENT LEFT UPPER ARM MIDLINE...SEE IV FLOW SHEET, DRSGS TO RIGHT LATERAL INCISIONS ARE CDI, ABDOMEN IS SOFT AND ROUND WITH HYPO BS, PATENT F/C WITH YELLOW UOP, EDEMA NOTED IN ALL EXTREMETIES, ALL PPP, VSS, WILL CON'T TO MONITOR
[2017-06-13 20:08] LABS: ACID FAST SMEAR Negative (()); AFB SPECIMEN PROCESSING Concentration (())
--- NOTE | 2017-06-13 21:00 | NUR ---
FAMILY AT BEDSIDE, UPDATE GIVEN
--- NOTE | 2017-06-13 23:10 | NUR ---
REASSESSMENT COMPLETE, NO CHANGES NOTED, PT REPOSITIONED FOR COMFORT, ORAL CARE PROVIDED, WILL CON'T TO MONITOR
[2017-06-14] VITALS (25 sets, daily range): BP systolic 99–140; BP diastolic 50–71
--- NOTE | 2017-06-14 01:05 | NUR ---
REPOSITIONED FOR COMFORT, ORAL CARE PROVIDED,
--- NOTE | 2017-06-14 03:02 | NUR ---
REASSESSMENT COMPLETE, NO CHANGES NOTED, RAD IN ROOM FOR DAILY CXR, WILL CON'T TO MONITOR
[2017-06-14 04:26] LABS: BASOPHILS 0.1 % (0-2); EOSINOPHILS 0 % (0-7); HEMATOCRIT 26.4 % (42.0-54.0); HEMOGLOBIN 8.3 g/dL (13.5-17.5); IMMATURE GRANULOCYTES 1.3 % (0-5); LYMPHOCYTES 4.5 % (15-50); MCH 28.8 pg (26.0-34.0); MCHC 31.4 g/dL (31.0-37.0); MCV 91.7 fL (80.0-100.0); MEAN PLATELET VOLUME 10.3 fL (7.4-10.4); MONOCYTES 4.9 % (2-11); NEUTROPHILS 89.2 % (40-80); PLATELET COUNT 194 10x3/uL (130-400); RBC 2.88 10x6/uL (4.20-6.10); RDW 16.7 % (11.5-14.5); WBC 17.8 10x3/uL (4.8-10.8)
[2017-06-14 04:53] LABS: ALBUMIN 1.6 g/dL (3.4-5.0); ALKALINE PHOSPHATASE 50 U/L (46-116); ALT (SGPT) 19 U/L (10-68); BILIRUBIN - TOTAL 0.26 mg/dL (0.2-1.3); CALC OSMOLALITY 285 mosm/kg (275-300); CALCIUM 8.1 mg/dL (8.5-10.1); CARBON DIOXIDE 32.1 mmol/L (21.0-32.0); CHLORIDE - SERUM 107 mmol/L (98-107); CREATININE - SERUM 0.8 mg/dL (0.6-1.3); GLUCOSE 149 mg/dL (74-106); POTASSIUM - SERUM 4.1 mmol/L (3.5-5.1); PROTEIN - SERUM 5.4 g/dL (6.4-8.2); SODIUM 140 mmol/L (136-145); UREA NITROGEN 25 mg/dL (7-18); eGFR NON AFRICAN AMERICAN > 90 mL/min (90-120)
--- NOTE | 2017-06-14 05:22 | NUR ---
REPOSITIONED FOR COMFORT, ORAL CARE PROVIDED,
--- NOTE | 2017-06-14 07:30 | NUR ---
EEG IN PROCESS. WILL ASSESS AFTER EEG COMPLETE.
--- NOTE | 2017-06-14 07:51 | NUR ---
Nutrition consult for TPN: Received written order from Dr. Mcfarlane to begin TPN due to pt aspirating on TF. Labs reviewed Order sent to pharmacy. RDN will manage TPN per Dr. Mcfarlane.
--- NOTE | 2017-06-14 09:30 | NUR ---
ASSESSMENT PER FLOWSHEET. EEG COMPLETE. FAMILY AT THE BEDSIDE.
--- NOTE | 2017-06-14 09:45 | NUR ---
AT BEDSIDE UPDATE GIVEN. WANTING TO KNOW EEG RESULTS INSTRUCT WILL BE READ THEN DICTATED.
--- NOTE | 2017-06-14 12:00 | NUR ---
AT BEDSIDE UPDATED .
[2017-06-14 13:19] LABS: FUNGUS STAIN Final report (())
--- NOTE | 2017-06-14 15:00 | NUR ---
UPDATED. VOICES NO CO AT TIME.
[2017-06-14 15:23] LABS: LEGIONELLA ANTIGEN - URINE Negative (Negative)
--- NOTE | 2017-06-14 16:00 | NUR ---
DR BRIONES HERE CVL PLACED. CHEST X RAY ORDERED.
--- NOTE | 2017-06-14 18:00 | NUR ---
UPDATED. NO CO AT TIME.
--- NOTE | 2017-06-14 19:30 | NUR ---
REPORT RECIEVED, SHIFT ASSESSMENT COMPLETE, PT IS SEDATED ON VENT, AROUSES TO VOICE, ON 50% FIO2 WITH 97% O2 SAT. CRACKLES HEARD IN B/L UPPER LOBES, DIMINISHED IN B/L LOWER LOBES, S1S2, CM-NSR, PATENT LEFT SC CVL...SEE IV FLOW SHEET...PATENT LEFT UPPER ARM MIDLINE..SEE IV FLOW SHEET, ABDOMEN IS SOFT AND ROUND WITH HYPO BS, PATENT F/C WITH YELLOW UOP, EDEMA NOTED IN ALL EXTREMETIES, ALL PPP, VSS, WILL CON'T TO MONITOR
--- NOTE | 2017-06-14 21:00 | NUR ---
FAMILY AT BEDSIDE, UPDATE GIVEN, CONSENT SIGNED FOR EGD AND PEG TUBE SCHEDULED FOR TOMORROW WITH DR. BRIONES
[2017-06-15] VITALS (26 sets, daily range): BP systolic 95–152; BP diastolic 47–87
--- NOTE | 2017-06-15 01:07 | NUR ---
COMPLETE BATH AND LINEN CHANGE, REPOSITIONED FOR COMFORT, WILL CON'T TO MONITOR
--- NOTE | 2017-06-15 03:30 | NUR ---
REASSESSMENT COMPLETE, NO CHANGES NOTED, PT RESTING AT THIS TIME, NO NEEDS NOTED, WILL CON'T TO MONITOR
[2017-06-15 04:22] LABS: BASOPHILS 0 % (0-2); EOSINOPHILS 0 % (0-7); HEMATOCRIT 25.5 % (42.0-54.0); HEMOGLOBIN 7.9 g/dL (13.5-17.5); IMMATURE GRANULOCYTES 1.6 % (0-5); LYMPHOCYTES 5.3 % (15-50); MCH 28.9 pg (26.0-34.0); MCV 93.4 fL (80.0-100.0); MEAN PLATELET VOLUME 10.4 fL (7.4-10.4); MONOCYTES 4.8 % (2-11); NEUTROPHILS 88.3 % (40-80); PLATELET COUNT 196 10x3/uL (130-400); RBC 2.73 10x6/uL (4.20-6.10); RDW 16.9 % (11.5-14.5); WBC 13.9 10x3/uL (4.8-10.8)
[2017-06-15 04:51] LABS: CALC OSMOLALITY 286 mosm/kg (275-300); CALCIUM 8.2 mg/dL (8.5-10.1); CARBON DIOXIDE 30.2 mmol/L (21.0-32.0); CHLORIDE - SERUM 106 mmol/L (98-107); CREATININE - SERUM 0.7 mg/dL (0.6-1.3); GLUCOSE 200 mg/dL (74-106); SODIUM 139 mmol/L (136-145); UREA NITROGEN 22 mg/dL (7-18); eGFR NON AFRICAN AMERICAN > 90 mL/min (90-120)
--- NOTE | 2017-06-15 06:00 | NUR ---
FAMILY AT BEDSIDE, UPDATE GIVEN
--- NOTE | 2017-06-15 07:00 | NUR ---
PT REPORT REC'D, PT CARE ASSUMED. PT SEDATED ON VENT, RESPONDS TO DEEP STIMULI. LEFT SUBCLAVIAN CVL WITH FLUIDS INFUSING, SEE FLOW SHEET, DRESSING CDI. LEFT UPPER ARM MID LINE WITH PROPOFOL INFUSING, DRESSING CDI. RIGHT LATERAL CHEST INCISIONS, DRESSING CDI. GARCIA CATHETER FREE OF KINKS TO GRAVITY WITH [place] URINE RETURN. SCD'S, ERICK'S. SHIFT ASSESSMENT COMPLETED, SEE FLOW SHEET. ROOM FREE OF CLUTTER, BED ALARM ACTIVATED, WILL CONTINUE TO MONITOR PT.
[2017-06-15 07:33] LABS: PHOSPHOROUS 3.9 mg/dL (2.5-4.9)
--- NOTE | 2017-06-15 08:15 | NUR ---
DR. BRIONES AT THE BEDSIDE FOR PEG PLACEMENT
--- NOTE | 2017-06-15 09:00 | NUR ---
PT FAMILY AT THE BEDSIDE, ALL QUESTIONS ANSWERED, VSS, WILL CONTINUE TO MONITOR PT.
--- NOTE | 2017-06-15 11:00 | NUR ---
REPOSITIONED PT, PROPPED WITH PILLOWS, VSS, REASSESSMENT COMPLETED, SEE FLOW SHEET. ROOM FREE OF CLUTTER, BED LOCKED IN LOWEST POSITION, BED ALARM ACTIVE. WILL CONTINUE TO MONITOR PT.
--- NOTE | 2017-06-15 12:26 | NUR ---
PT FAMILY AT THE BEDSIDE, ALL QUESTIONS ANSWERED, VSS, WILL CONTINUE TO MONITOR PT.
--- NOTE | 2017-06-15 15:00 | NUR ---
REPOSITIONED PT, PROPPED WITH PILLOWS, VSS, REASSESSMENT COMPLETED, SEE FLOW SHEET. ROOM FREE OF CLUTTER, BED ALARM ACTIVE, WILL CONTINUE TO MONITOR PT.
--- NOTE | 2017-06-15 15:12 | NUR ---
PT HAD BLOODY BM, COMPLETE LINEN CHANGE. PAGED DR. ABRAMS TO INFORM OF BLOODY BM. VSS, WILL CONTINUE TO MONITOR PT.
--- NOTE | 2017-06-15 15:20 | NUR ---
PT FAMILY AT THE BEDSIDE, ALL QUESTIONS ANSWERED, VSS, WILL CONTINUE TO MONITOR PT.
[2017-06-15 15:25] LABS: HISTOPLASMA GAL MANNAN AG SER 0.69 ng/mL (0.00-0.49)
--- NOTE | 2017-06-15 18:04 | NUR ---
PT FAMILY AT THE BEDSIDE, ALL QUESTIONS ANSWERED, VSS, WILL CONTINUE TO MONITOR PT.
--- NOTE | 2017-06-15 19:10 | NUR ---
REPORT RECIEVED. ASSESSMENT COMPLETE PER FLOW SHEET. VSS. PT AWAKE ALERT CALM AND COOROPERATIVE. ORAL ENDOTRACH CARE ADM. RESP NOTIFIED ETT AT 20 AT LIP. WILL CONTINUE TO MONITOR
--- NOTE | 2017-06-15 21:28 | NUR ---
FAMILY AT BEDSIDE. VSS. NO NEW CHANGES. GIVEN UPDATE. WILL CONTINUE TO MONITOR
--- NOTE | 2017-06-15 23:00 | NUR ---
REASSESSMENT COMPLET EPER FLOW SHEET. VSS. NO NEW CHANGES. WILL CONTINUE TO MONITOR
[2017-06-16] VITALS (54 sets, daily range): BP systolic 75–152; BP diastolic 41–101
--- NOTE | 2017-06-16 01:00 | NUR ---
COMPLETE BB LINEN CHANGE ADM. R LAT CHEST DRSG CHANGE COMPLETE.
--- NOTE | 2017-06-16 02:30 | NUR ---
RESP AT BEDSIDE. PT O2 SAT 86% WITH GOOD WAVEFORM. FIO2 INCREASED TO 50% NO FURTHER NEW CHANGES
--- NOTE | 2017-06-16 03:23 | NUR ---
REASSESSMENT COMPLETE PER FLOW SHEET. VSS. NO NEW CHANGES. WILL CONTINUE TO MONITOR
[2017-06-16 04:49] LABS: BASOPHILS 0 % (0-2); EOSINOPHILS 0 % (0-7); HEMATOCRIT 26.7 % (42.0-54.0); HEMOGLOBIN 8.3 g/dL (13.5-17.5); IMMATURE GRANULOCYTES 2.9 % (0-5); LYMPHOCYTES 7.3 % (15-50); MCH 28.8 pg (26.0-34.0); MCHC 31.1 g/dL (31.0-37.0); MCV 92.7 fL (80.0-100.0); MEAN PLATELET VOLUME 10.5 fL (7.4-10.4); MONOCYTES 4.3 % (2-11); NEUTROPHILS 85.5 % (40-80); PLATELET COUNT 224 10x3/uL (130-400); RBC 2.88 10x6/uL (4.20-6.10); RDW 16.9 % (11.5-14.5); WBC 15.1 10x3/uL (4.8-10.8)
[2017-06-16 05:13] LABS: CALC OSMOLALITY 287 mosm/kg (275-300); CALCIUM 8.2 mg/dL (8.5-10.1); CARBON DIOXIDE 32.1 mmol/L (21.0-32.0); CHLORIDE - SERUM 106 mmol/L (98-107); CREATININE - SERUM 0.7 mg/dL (0.6-1.3); GLUCOSE 192 mg/dL (74-106); MAGNESIUM - SERUM 1.7 mg/dL (1.8-2.4); POTASSIUM - SERUM 3.9 mmol/L (3.5-5.1); SODIUM 141 mmol/L (136-145); UREA NITROGEN 19 mg/dL (7-18); eGFR NON AFRICAN AMERICAN > 90 mL/min (90-120)
[2017-06-16 05:17] LABS: PHOSPHOROUS 2.7 mg/dL (2.5-4.9)
--- NOTE | 2017-06-16 05:40 | NUR ---
ORAL ENDOTRACH CARE ADM. VENT ALARMING 100% O2 ADM. PINK FROTHY SPUTUM NOTED. WILL NOTIFY DR ABRAMS.
--- NOTE | 2017-06-16 06:39 | NUR ---
DR ABRAMS PAGED NEW ORDERS RECIEVED. O2 SAT 90% RR 40 PINK FROTHY SPUTUM NOTED LASIX ORDERED T. GIVEN. WILL CONTINUE TO MONITOR
--- NOTE | 2017-06-16 08:09 | NUR ---
NOTIFIED OF TEMP OF 103.8 WITH NEW ORDERS RECD.
--- NOTE | 2017-06-16 08:13 | NUR ---
ICE PLACED TO HEAD AND AXILLA BILAT TO REDUCE TEMP. SKIN PROTEDTED WITH TOWEL
--- NOTE | 2017-06-16 08:53 | NUR ---
PATIENTS SAT % FELL TO 86%, RT INCREASED O2 TO 100% NOT SAT IS 94%
--- NOTE | 2017-06-16 09:57 | NUR ---
Nutrition follow-up: TPN infusing @ 40 ml/hr JEG placed. Received order from Dr. Addison for TF. Placed order for TwoCal HN to start today @ 10 ml/hr. Flush with 25 ml Q hour HOB > 30 degrees Will need to advance TF slowly to goal rate of 40 ml/hr. RDN following.
--- NOTE | 2017-06-16 12:16 | NUR ---
CLARIFIED WITH DIATITIAN TO LEAVE TPN AT CURRENT RATE WHEN TF BEGINS.
--- NOTE | 2017-06-16 16:46 | NUR ---
LEFT MID-LINE REMOVED AND TIP CULTURED
--- NOTE | 2017-06-16 19:25 | NUR ---
REPORT REVIECED, INITIAL ASSESSMENT COMPLETE, PLEASE SEE FLOW SHEETS FOR DETAILS. ON VENT AND SEDATED, LEFT SUBCLAVIAN CVL INFUSING, SEE IV FLOW SHEET FOR FLUIDS. CRITICORE JOSE IN PLAVE AND DRAINING VIA GRAVITY. PPP. SCD'S AND ERICK'S ON, SKIN CHECKED. TUBE FEEDING @ 10 WITH 25ML HOURLY FLUSHES TO G-TUBE, SITE CDI. PUPILS EQUAL AND REACTIVE BUT SLUGGISH. ORAL CARE AND TURNING PROVIDED ATT. GRIMMACING NOTED WITH ORAL CARE. BED LOW AND LOCKED, VSS, WILL CPOC.
--- NOTE | 2017-06-16 21:00 | NUR ---
ORAL CARE AND TURNING PROVIDED. VSS, BED LOW AND LOCKED, WILL CPOC.
--- NOTE | 2017-06-16 21:18 | NUR ---
SPOKE TO FAMILY, THEY WERE ASKING ABOUT HIS CT SCAN, INFORMED THEM THAT THEY HAD CALLED AND HE WOULD BE GOING SOON ALSO THAT RESULTS WOULD NOT BE READ UNTIL PULMONOLOGY READ IT IN THE MORNING.
--- NOTE | 2017-06-16 22:49 | NUR ---
JUST GOT BACK FROM CT FOR PE PROTOCOL SCAN AND NOTED A BLOODY STOOL. WILL NOTIFY
--- NOTE | 2017-06-16 23:00 | NUR ---
REASSESSMENT COMPLETE, PLEASE SEE FLOW SHEETS FOR DETAILS. ORAL CARE AND TURNING PROVIDED. PARTIAL LINEN CHANGE ALSO PROVIDED. PAGED DR ABRAMS TO UPDATE ON PT STATUS. LARGE AMOUNTS OF CLEAR AND PINK DRAINAGE COMING FROM OLD CHEST TUBE SITE. HR ELEVATED AND BP LOW BUT STABLE. WILL CPOC.
--- NOTE | 2017-06-16 23:20 | NUR ---
SPOKE WITH DR ABRAMS, RECIEVED NEW ORDERS.
[2017-06-16 23:36] LABS: BASOPHILS 0.1 % (0-2); EOSINOPHILS 0.1 % (0-7); HEMATOCRIT 26.9 % (42.0-54.0); HEMOGLOBIN 8.2 g/dL (13.5-17.5); IMMATURE GRANULOCYTES 1.2 % (0-5); LYMPHOCYTES 13.5 % (15-50); MCH 28.4 pg (26.0-34.0); MCHC 30.5 g/dL (31.0-37.0); MCV 93.1 fL (80.0-100.0); MEAN PLATELET VOLUME 10.5 fL (7.4-10.4); MONOCYTES 2.4 % (2-11); NEUTROPHILS 82.7 % (40-80); PLATELET COUNT 213 10x3/uL (130-400); RBC 2.89 10x6/uL (4.20-6.10); RDW 17.5 % (11.5-14.5); WBC 15.1 10x3/uL (4.8-10.8)
--- NOTE | 2017-06-16 23:42 | NUR ---
PAGED SURGERY TO NOTIFY OF SITUATION.
[2017-06-16 23:49] LABS: APTT 40.9 SECONDS (22.8-39.4); INR 1.13 (0.85-1.17); PROTIME 14.4 SECONDS (11.6-15.0)
[2017-06-17] VITALS (48 sets, daily range): BP systolic 82–151; BP diastolic 45–80
--- NOTE | 2017-06-17 00:08 | NUR ---
PAGING DR FRANK AGAIN.
--- NOTE | 2017-06-17 01:00 | NUR ---
ORAL CARE AND TURNING PROVIDED. BED LOW AND LOCKED, CALL LIGHT IN REACH. CPOC.
--- NOTE | 2017-06-17 01:47 | NUR ---
PAGED DR SCHERER ABOUT A.FIB NOTED ON EKG.
--- NOTE | 2017-06-17 02:05 | NUR ---
PAGED DR SCHERER AGAIN.
--- NOTE | 2017-06-17 02:10 | NUR ---
RECIEVED CTA REPORT FROM XRAY AND PAGED DR ABRAMS.
--- NOTE | 2017-06-17 02:31 | NUR ---
PT CONVERTED BACK TO A NSR ON MONITOR. RATE OF 78. WILL CONTINUE TO MONITOR.
--- NOTE | 2017-06-17 02:33 | NUR ---
PAGED DR ABRAMS
--- NOTE | 2017-06-17 02:37 | NUR ---
SPOKE TO DR ABRAMS, NEW ORDERS RECIEVED. WILL CONTINUE TO MONITOR PT.
--- NOTE | 2017-06-17 03:00 | NUR ---
REASSESSMENT COMPLETE, PLEASE SEE FLOW SHEETS FOR DETAILS. ORAL CARE AND TURNING PROVIDED. BED LOW AND LOCKED, VSS, WILL CPOC.
--- NOTE | 2017-06-17 03:30 | NUR ---
SPOKE TO DR FRANK, ORDERS TO CONSULT IR FOR IVC FILTER AND TO HOLD LOVENOX. WILL CPOC ALSO.
--- NOTE | 2017-06-17 05:00 | NUR ---
ORAL CARE AND TURNING PROVIDED. BED LOW AND LOCKED, VSS, WILL CPOC.
[2017-06-17 05:16] LABS: BASOPHILS 0.1 % (0-2); EOSINOPHILS 0.1 % (0-7); HEMATOCRIT 23.6 % (42.0-54.0); HEMOGLOBIN 7.3 g/dL (13.5-17.5); MCH 28.9 pg (26.0-34.0); MCHC 30.9 g/dL (31.0-37.0); MCV 93.3 fL (80.0-100.0); MEAN PLATELET VOLUME 10.4 fL (7.4-10.4); MONOCYTES 2.9 % (2-11); NEUTROPHILS 89.9 % (40-80); PLATELET COUNT 202 10x3/uL (130-400); RBC 2.53 10x6/uL (4.20-6.10); RDW 17.5 % (11.5-14.5); WBC 12.1 10x3/uL (4.8-10.8)
--- NOTE | 2017-06-17 05:18 | NUR ---
CRITICAL LABS RECIEVED, PAGED DR FRANK.
[2017-06-17 05:21] LABS: CALC OSMOLALITY 286 mosm/kg (275-300); CARBON DIOXIDE 32.5 mmol/L (21.0-32.0); CHLORIDE - SERUM 104 mmol/L (98-107); CREATININE - SERUM 0.6 mg/dL (0.6-1.3); GLUCOSE 213 mg/dL (74-106); SODIUM 139 mmol/L (136-145); UREA NITROGEN 20 mg/dL (7-18); eGFR NON AFRICAN AMERICAN > 90 mL/min (90-120)
--- NOTE | 2017-06-17 05:21 | NUR ---
SPOKE WITH DR FRANK, ORDERS RECIEVED.
--- NOTE | 2017-06-17 11:56 | NUR ---
TO IR VIA BED AND TWO STAFF AND ONE RT
--- NOTE | 2017-06-17 12:18 | OP ---
PATIENT NAME: HAYDEE ESCOBAR MEDICAL RECORD: [id number] :53 LOCATION:[facility] D.2301 ADMISSION DATE:05/23/17 SURGEON: KENYA CORTEZ MD DATE OF OPERATION: 06/05/2017 SURGEON: Kenya Cortez MD ANESTHESIA: General endotracheal, Dr. Clark. OPERATION PERFORMED: Video-assisted thoracoscopy and lung biopsy and culture. PREOPERATIVE DIAGNOSIS: Interstitial lung disease. POSTOPERATIVE DIAGNOSIS: Interstitial lung disease. INDICATION FOR OPERATION: Interstitial lung disease without diagnosis. FINDINGS AT OPERATION: Anthracotic lung stiff, edematous and nodular. ESTIMATED BLOOD LOSS: Less than 20 mL. Cultures were taken for aerobe, anaerobe, TB, fungus, fluid was sent for cultures and cytology. Biopsies were sent from the upper lobe, middle lobe and lower lobe for tissue culture and histology. DESCRIPTION OF PROCEDURE: After informed consent, adequate preoperative medication evaluation, the patient was brought to the operating room, placed on the table in the supine position. After induction of general anesthesia and application of appropriate monitoring devices, the patient underwent placement of a double lumen tube and flexible fiberoptic bronchoscopy. The patient was turned in a left lateral decubitus position. The right chest prepped and draped in a sterile field, utilizing Betadine scrub, alcohol, and Betadine solution. Betadine-impregnated drape was also used. Pressure points were protected on the left side as well as the neurological structures. A port was placed in the mid axillary line ninth interspace and the lung examined. The above findings were noted. The fluid was removed to a leaky trapped and sent for cultures and cytology. With the lung and mediastinal examined, there was no obvious pathology other than the lung disease. Biopsies were taken from the upper lobe, middle lobe and lower lobe utilizing an Endo-ONEIL stapler. The specimens portion and small amounts were sent for tissue cultures, aerobic, anaerobic, TB and fungus. The chest was irrigated. There was no active bleeding. Instrument count and sponge count were correct times 2. A #32 chest tube was placed through the camera port and secured connected to underwater seal and suction and the anterior and posterior ports were used to identify the tube, in good position. The anterior and posterior ports had been placed under direct vision and were closed with 2-0 Vicryl and skin approximated with 5-0 subcuticular Monocryl. Sterile dressings were applied. The patient tolerated the procedure well and transferred to the CV ICU in satisfactory condition. TRANSINT:[id number] Voice Confirmation ID: [id number] DOCUMENT ID: [id number] OPERATIVE REPORT [id number] HAYDEE ESCOBAR EDWARD MD at 1218 CC: [id number] DICTATION DATE: 06/05/17 1301 SOCIETY REPORTER: 06/05/17 1607 [place] [address]
--- NOTE | 2017-06-17 12:35 | NUR ---
RETURNED FROM SPECIALS VIA BED, TWO SPECIALS STAFF AND ONE RT, REPORT RECT, RIGHT FEMORAL SITE WITHOUT NOTED HEMATOMA OR BLEEDING, RIGHT PEDAL PULSE STRONG.
[2017-06-17 17:08] LABS: AEROBE ID Final report (()); RESULT 1 Micrococcus species (())
[2017-06-17 17:42] LABS: HEMATOCRIT 29.8 % (42.0-54.0); HEMOGLOBIN 9.8 g/dL (13.5-17.5)
--- NOTE | 2017-06-17 19:00 | NUR ---
REPORT RECIEVED, INITIAL ASSESSMENT COMPLETE, PLEASE SEE FLOW SHEETS FOR DETAILS. PT EASILY ARROUSED UNDER SEDATION, BUT CALM. IVC FILTER PLACED TO RIGHT GROIN DRESSING CDI. SCD'S AND TEDS ON, SKIN CHECKED AND WNL. BED LOW AND LOCKED. VSS ATT, WILL CPOC.
--- NOTE | 2017-06-17 21:00 | NUR ---
ORAL CARE AND TURNING PROVIDED. FAMILY THEN CAME INTO ROOM, QUESTIONS ANSWERED TO BEST OF ABILITY. BED LOW AND LOCKED. VSS, WILL CPOC.
[2017-06-17 22:17] LABS: HEMATOCRIT 30.5 % (42.0-54.0)
--- NOTE | 2017-06-17 23:00 | NUR ---
REASSESSMENT COMPLETE, PLEASE SEE FLOW SHEETS FOR DETAILS. ORAL CARE AND TURNING PROVIDED. GARCIA CARE PROVIDED ATT ALSO. VSS ATT, BED LOW AND LOCKED, CALL LIGHT IN REACH. WILL CPOC.
[2017-06-18] VITALS (24 sets, daily range): BP systolic 87–147; BP diastolic 46–578
--- NOTE | 2017-06-18 01:00 | NUR ---
ORAL CARE AND TURNING PROVIDED. TOELRATED WELL. VSS, BED LOW AND LOCKED, CALL LIGHT IN REACH. WILL CPOC.
--- NOTE | 2017-06-18 03:00 | NUR ---
REASSESSMENT COMPLETE, PLEASE SEE FLOW SHEETS FOR DETAILS. ORAL CARE AND TURNING PROVIDED. VSS. BED LOW AND LOCKED, CALL LIGHT IN REACH. WILL CPOC.
[2017-06-18 04:53] LABS: BASOPHILS 0.1 % (0-2); EOSINOPHILS 0.1 % (0-7); HEMATOCRIT 30.7 % (42.0-54.0); IMMATURE GRANULOCYTES 3.4 % (0-5); MCH 29.2 pg (26.0-34.0); MCHC 32.6 g/dL (31.0-37.0); MEAN PLATELET VOLUME 10.1 fL (7.4-10.4); MONOCYTES 3.5 % (2-11); NEUTROPHILS 86.9 % (40-80); PLATELET COUNT 212 10x3/uL (130-400); RDW 16.9 % (11.5-14.5)
[2017-06-18 05:06] LABS: MCV 89.8 fL (80.0-100.0); RBC 3.42 10x6/uL (4.20-6.10)
[2017-06-18 05:47] LABS: ALBUMIN 1.4 g/dL (3.4-5.0); ALKALINE PHOSPHATASE 66 U/L (46-116); ALT (SGPT) 21 U/L (10-68); BILIRUBIN - TOTAL 0.24 mg/dL (0.2-1.3); CALC OSMOLALITY 288 mosm/kg (275-300); CALCIUM 7.8 mg/dL (8.5-10.1); CARBON DIOXIDE 30.2 mmol/L (21.0-32.0); CHLORIDE - SERUM 106 mmol/L (98-107); CREATININE - SERUM 0.7 mg/dL (0.6-1.3); GLUCOSE 217 mg/dL (74-106); MAGNESIUM - SERUM 1.9 mg/dL (1.8-2.4); PHENYTOIN (DILANTIN) 5.1 ug/mL (10.0-20.0); PHOSPHOROUS 3.2 mg/dL (2.5-4.9); PROTEIN - SERUM 5.4 g/dL (6.4-8.2); SODIUM 140 mmol/L (136-145); TROPONIN-I 4.502 ng/mL (0.000-0.060); UREA NITROGEN 20 mg/dL (7-18); eGFR NON AFRICAN AMERICAN > 90 mL/min (90-120)
--- NOTE | 2017-06-18 06:12 | NUR ---
UPON INSPECTION, PT FOUND WITH LARGE BRIGHT RED STOOL, PAGED DR RICH.
--- NOTE | 2017-06-18 06:15 | NUR ---
SPOKE WITH FAMILY ABOUT FINDING BLOODY STOOL, AND THAT I HAD JUST PAGED DR RICH. THEY INFORMED ME THAT THEY HAD MADE THE DECISION THIS MORNING TO TERMINALLY EXTUBATE TOMORROW 06/19/17. INFORMED FAMILY ABOUT DR CRAMER PLAN TO HAVE A NUCLEAR MED BLOOD SCAN AND THEY SAID THAT THEY DID NOT WANT IT. THEY STATED THAT THE PATIENT WOULD NOT WANT TO BE TRACH'D AND THEY BELIEVE THAT HE WOULD NOT BE ABLE TO HANDLE ANOTHER PROCEDURE. WILL INFORM DR RICH WHEN SHE CALLS BACK.
--- NOTE | 2017-06-18 06:20 | NUR ---
SPOKE WITH DR RICH, INFORMED HER OF FAMILY DECISION TO TERMINALLY EXTUBATE TOMORROW 06/19/17. SHE WANTED TO KNOW IF THEY WISHED HIM TO HAVE ANY BLOOD PRODUCTS AND THEY SAID NO.
--- NOTE | 2017-06-18 09:45 | NUR ---
REQUESTED PATIENT BE A DNR, VERIFIED AND RESTATED, SHE UNDERSTANDS AND WISHES PATIENT TO BE A DNR
--- NOTE | 2017-06-18 11:00 | NUR ---
NO CHANGE NOTED
--- NOTE | 2017-06-18 15:00 | NUR ---
NO CHANGE NOTED
--- NOTE | 2017-06-18 20:25 | NUR ---
DR. ABRAMS NOTIFIED OF VANC LEVEL - ORDER TO HOLD THIS DOSE.
--- NOTE | 2017-06-18 20:45 | NUR ---
DARK, LOOSE, MAROON STOOL. COMPLETE BATH AND LINEN CHANGE DONE.
--- NOTE | 2017-06-18 21:18 | NUR ---
FAMILY AT BS. REQUESTING PLAN FOR TERMINAL EXTUBATION AROUND 1100 TOMORROW.
[2017-06-19] VITALS: BP 102/61
--- NOTE | 2017-06-19 00:45 | NUR ---
PRN MORPHINE FOR GRIMMACING GIVEN. TEMP 38.5 - ADMIN TYLENOL PER TUBE, PER PRN ORDER. ROOM TEMP AND BLANKETS ADJUSTED.
[2017-06-19 01:00] VITALS: BP 93/49
[2017-06-19 02:00] VITALS: BP 82/47
--- NOTE | 2017-06-19 03:14 | NUR ---
REASSESSMENT PER FLOWSHEET, PCXR DONE. CONT WITH ELEVATED TEMP, ICE PACKS TO AXILLA. OTHERWISE NO CHANGES.
[2017-06-19 05:14] LABS: BASOPHILS 0.1 % (0-2); HEMATOCRIT 26.3 % (42.0-54.0); HEMOGLOBIN 8.4 g/dL (13.5-17.5); IMMATURE GRANULOCYTES 4.4 % (0-5); LYMPHOCYTES 4.9 % (15-50); MCH 29.5 pg (26.0-34.0); MCHC 31.9 g/dL (31.0-37.0); MEAN PLATELET VOLUME 10.3 fL (7.4-10.4); MONOCYTES 3.5 % (2-11); NEUTROPHILS 84.1 % (40-80); PLATELET COUNT 199 10x3/uL (130-400); RBC 2.85 10x6/uL (4.20-6.10); RDW 17.1 % (11.5-14.5); WBC 14.4 10x3/uL (4.8-10.8)
[2017-06-19 05:18] LABS: MCV 92.3 fL (80.0-100.0)
[2017-06-19 05:45] LABS: ALBUMIN 1.2 g/dL (3.4-5.0); ALKALINE PHOSPHATASE 60 U/L (46-116); ALT (SGPT) 22 U/L (10-68); BILIRUBIN - TOTAL 0.19 mg/dL (0.2-1.3); CALC OSMOLALITY 283 mosm/kg (275-300); CALCIUM 7.5 mg/dL (8.5-10.1); CARBON DIOXIDE 28.7 mmol/L (21.0-32.0); CHLORIDE - SERUM 106 mmol/L (98-107); CREATININE - SERUM 0.8 mg/dL (0.6-1.3); GLUCOSE 178 mg/dL (74-106); POTASSIUM - SERUM 4.3 mmol/L (3.5-5.1); PROTEIN - SERUM 4.8 g/dL (6.4-8.2); SODIUM 138 mmol/L (136-145); UREA NITROGEN 25 mg/dL (7-18); eGFR NON AFRICAN AMERICAN > 90 mL/min (90-120)
--- NOTE | 2017-06-19 06:39 | NUR ---
BROOKE, DONATION COORDINATOR WITH [facility], NOTIFIED REGARDING PLANS TO WITHDRAW CARE. INSTRUCTED TO CALL BACK UPON PASSING OF PT.
[2017-06-19 07:00] VITALS: BP 88/52
--- NOTE | 2017-06-19 07:00 | NUR ---
REC'D REPORT AND RESUMED CARE, VENTILATION IN USE, ETT SECURED, FIO2 30% IN SIMV MODE, OTHER VSS, LEFT TL SC WITH PROPOFAL AT 55 MCG, VERSED AT 7 MG/HR, TPN AT 40 CC/HR, PROTONIX GTT AT 8MG/HR, DRESSING CDI, ABDOMINAL BINDER COVERING LUQ PEG, PEG WITH 1.5 SHIRLEY INFUSING AT 10 CC/HR, GARCIA TO GRAVITY,TEMP READING 98.0, SCD'S B/L, RIGHT GROIN DRESSING, CDI, REMOVED, SCD'S B/L, LARGE DARK TARRY STOOL, SKINCARE AND LINEN CHANGE COMPLETED, FAMILY CALLED TO BEDSIDE, PLANNING TO DC'D VENT SUPPORT TODAY
[2017-06-19 07:30] VITALS: BP 88/52
--- NOTE | 2017-06-19 08:02 | EEG ---
PATIENT:HAYDEE ESCOBAR DATE OF SERVICE: 05/23/17 MEDICAL RECORD: [id number] DATE OF : 53 LOCATION:D.230 D.ICU ADMISSION DATE: 05/23/17 REFERRING PHYSICIAN: INTERPRETING PHYSICIAN: ABDIFATAH OVALLE MD DATE OF SERVICE: 06/14/2017 Referred by myself as an inpatient, currently in room 2301. ELECTROENCEPHALOGRAM NUMBER: [id number] DATE OF EXAMINATION: 06/14/2017 at 9:00 a.m. TECHNICAL DATA: This electroencephalographic recording consists of approximately 20 minutes of data collection utilizing the international 10/20 system of electrode placement and both referential and non-referential montages. Sixteen channels of electrocerebral recording are accompanied by a 17th channel dedicated to the electrocardiographic rhythm and 2 channels of electromyographic recording. Recording is performed in the lethargic state utilizing activation by photic stimulation as well as verbal and tactile stimulation. ELECTROENCEPHALOGRAPHIC DATA: The entirety of the recorded electrocerebral activity is performed in the lethargic state. Electromyographic artifact is prominent and rapid eye movements are occasionally seen. Electromyographic and movement artifacts partially obscured the recorded electrocerebral activity. A posterior dominant background, which is symmetric, semi-rhythmic and in the range of 7-8 Hz has seen throughout the recording and effective eye opening and closure is not established. Also seen is an intermittent irregular, generalized and symmetric 3-4 Hz delta slowing, which occurs for periods of 1-2 seconds approximately once to twice per page. No focal slowing is identified. No epileptiform discharges are seen. Photic stimulation as well as verbal and tactile stimulation did not demonstrate a significant change in the recorded electrocerebral activity. INTERPRETATION: Intermittent slow, generalized (lethargy). This electroencephalographic recording is indicative of a moderate diffuse encephalopathy. TRANSINT:[id number] Voice Confirmation ID: [id number] DOCUMENT ID: [id number] ABDIFATAH OVALLE MD at 0802 CC: [id number] DICTATION DATE: 06/14/17 1133 SUPPLY CHAIN VICE PRESIDENT: 06/14/[id number] ADM IN [facility] [address] [place] [address]
--- NOTE | 2017-06-19 09:00 | NUR ---
AM MDES GIVEN PER MAR AND PROTOCAL
--- NOTE | 2017-06-19 10:00 | NUR ---
CM met with spouse at bedside. Family has decided to terminally wean patient from ventilator. Discussed hospice services - she is agreeable. Order rec'd. Referral faxed and called to Gertrude with [facility]. Anticipate extubation once patient is admitted to hospice services.
[2017-06-19 10:10] LABS: FUNGUS MYCOLOGY CULTURE Preliminary report (())
--- NOTE | 2017-06-19 11:18 | NUR ---
HOSPICE EVAL COMPLETED, ACCEPTED NEW ORDERS INITIATED,
== END 2017-06-19 12:54 | disposition hospice, inpatient (51) | DRG 166 ==
LOC: D.ICU 02:49 → D.M2 03:42 → D.CVICU 03:42 → D.ICU 03:42 → D.M2 05-25 14:49 → D.CVICU 06-05 12:50 → D.ICU 06-06 13:30
PROVIDERS: Internal Medicine Cardiovascular Disease; Internal Medicine Pulmonary Disease; Student in an Organized Health Care Education/Training Program; ADMIT Internal Medicine Cardiovascular Disease
PROC: 0B9B8ZX Drainage of Left Lower Lobe Bronchus, Via Natural or Artificial Opening Endoscopic, Diagnostic (ICD-10-PCS; principal; 2017-06-01 09:30)
PROC: 0BBC4ZX Excision of Right Upper Lung Lobe, Percutaneous Endoscopic Approach, Diagnostic (ICD-10-PCS; 2017-06-05)
PROC: 0BBF4ZX Excision of Right Lower Lung Lobe, Percutaneous Endoscopic Approach, Diagnostic (ICD-10-PCS; 2017-06-05)
PROC: 0BBD4ZX Excision of Right Middle Lung Lobe, Percutaneous Endoscopic Approach, Diagnostic (ICD-10-PCS; 2017-06-05)
PROC: 5A1955Z Respiratory Ventilation, Greater than 96 Consecutive Hours (ICD-10-PCS; 2017-06-05)
PROC: 06H03DZ Insertion of Intraluminal Device into Inferior Vena Cava, Percutaneous Approach (ICD-10-PCS; 2017-06-05)
PROC: 0BB78ZX Excision of Left Main Bronchus, Via Natural or Artificial Opening Endoscopic, Diagnostic (ICD-10-PCS; 2017-06-12)
PROC: 0BB88ZX Excision of Left Upper Lobe Bronchus, Via Natural or Artificial Opening Endoscopic, Diagnostic (ICD-10-PCS; 2017-06-12)
PROC: 0BBB8ZX Excision of Left Lower Lobe Bronchus, Via Natural or Artificial Opening Endoscopic, Diagnostic (ICD-10-PCS; 2017-06-12)
PROC: 05HC33Z Insertion of Infusion Device into Left Basilic Vein, Percutaneous Approach (ICD-10-PCS; 2017-06-12)
PROC: B54NZZA Ultrasonography of Left Upper Extremity Veins, Guidance (ICD-10-PCS; 2017-06-12)
PROC: 05H633Z Insertion of Infusion Device into Left Subclavian Vein, Percutaneous Approach (ICD-10-PCS; 2017-06-14)
PROC: 0DH63UZ Insertion of Feeding Device into Stomach, Percutaneous Approach (ICD-10-PCS; 2017-06-15)
DX: J84.89 Other specified interstitial pulmonary diseases (principal); J96.01 Acute respiratory failure with hypoxia; G93.40 Encephalopathy, unspecified; I50.23 Acute on chronic systolic (congestive) heart failure; J44.0 Chronic obstructive pulmonary disease with (acute) lower respiratory infection; J44.1 Chronic obstructive pulmonary disease with (acute) exacerbation; T17.590A Other foreign object in bronchus causing asphyxiation, initial encounter; K92.2 Gastrointestinal hemorrhage, unspecified; D62 Acute posthemorrhagic anemia; I11.0 Hypertensive heart disease with heart failure; I25.10 Atherosclerotic heart disease of native coronary artery without angina pectoris; F03.90 Unspecified dementia, unspecified severity, without behavioral disturbance, psychotic disturbance, mood disturbance, and anxiety; I95.9 Hypotension, unspecified; E88.09 Other disorders of plasma-protein metabolism, not elsewhere classified; E87.5 Hyperkalemia; Z78.1 Physical restraint status; K21.9 Gastro-esophageal reflux disease without esophagitis; N40.0 Benign prostatic hyperplasia without lower urinary tract symptoms; B37.9 Candidiasis, unspecified; Z66 Do not resuscitate; I25.2 Old myocardial infarction; Z95.5 Presence of coronary angioplasty implant and graft; Z95.1 Presence of aortocoronary bypass graft; Z86.73 Personal history of transient ischemic attack (TIA), and cerebral infarction without residual deficits; Z87.891 Personal history of nicotine dependence

== ENCOUNTER 2017-06-19 11:53 | Inpatient (IN) | payer OTHER ==
[~2017-06-19] VITALS: Ht 165.1 cm; Wt 37.3 kg
[~2017-06-19 11:53] MED LIST: AMBIEN10 MG PO; BAYER CHEWABLE81 MG PO; FLOMAX0.4 MG PO; ISOSORBIDE MONO30 M1 PO; METOPROLOL TART25 MG PO; NEURONTIN800 MG PO; NITRO-DUR0.6 MG TRANSDERM; NORCO 7.5/325 T1 TA1 PO; PLAVIX75 MG PO; RANEXA1000 MG PO; VIBRAMYCIN 100100 MG; ZANAFLEX4 MG PO
[2017-06-19 12:01] VITALS: BP 88/52; Ht 165.1 cm; Wt 37.3 kg
--- NOTE | 2017-06-19 13:00 | NUR ---
EXTUBATED TO 2L NC, ORAL CARE AND SUCTION COMPLETED, LOTS OF SECRETIONS AND GURGULING, REPOSTIONED UP IN BED WITH HEELS FLOATED, FAMILY CALLED TO BEDSIDE, TEARFUL, KLEENEX AVAILABLE, NO OTHER NEEDS AT THIS TIME
[2017-06-19 13:15] VITALS: BP 141/90
--- NOTE | 2017-06-19 14:10 | NUR ---
AGITATED, DYSPNEA, NEW ORDER GIVEN FOR VALIUM 10 MG IV, ATROPINE GTTS GIVEN PER ORDER
[2017-06-19 14:15] VITALS: BP 114/68
--- NOTE | 2017-06-19 14:30 | NUR ---
NEW ORDER FOR ATROPINE DROPS TIMES 2, GIVEN PER MAR FLOWSHEET
--- NOTE | 2017-06-19 15:00 | NUR ---
ASSESSMENT COMPLETE, NOW RESTING COMFORTABLY WITH FAMILY AT BEDSIDE, NO OTHER CHANGES FROM PREVIOUS
[2017-06-19 15:15] VITALS: BP 107/59
[2017-06-19 16:15] VITALS: BP 82/66
--- NOTE | 2017-06-19 16:50 | NUR ---
VALIUM 10 MG IVP GIVEN FOR AGITATION AND RESTLESSNESS
[2017-06-19 17:15] VITALS: BP 76/46
--- NOTE | 2017-06-19 17:31 | NUR ---
TO ROOM GETING READY FOR TRANSFER, 1 LAST BREATH TAKEN, ASYSTOLE ON MONITOR, FAMILY CALLED TO BEDSIDE, NO NEEDS AT THIS TIME
--- NOTE | 2017-06-19 17:45 | NUR ---
PC TO [facility] TO REPORT
--- NOTE | 2017-06-19 18:15 | NUR ---
PRONOUNCED BY DR BUCK AND MOVED TO 2235 VIA BED WITH PERSONNEL X2
--- NOTE | 2017-06-19 21:22 | NUR ---
2044) HOME HERE AND HOSPICE
== END 2017-06-19 20:45 | DRG 951 ==
LOC: D.ICU 11:53 → D.MS 18:37
PROVIDERS: ADMIT Legal Medicine
DX: Z51.5 Encounter for palliative care (principal)